=== PATIENT | male | born 1940 | race Caucasian/White ===

== ENCOUNTER 2019-04-13 12:34 | Inpatient (IN) ==
--- NOTE | 2019-04-13 14:51 | PROVIDER DOCUMENTATION ---
HPI-General Adult - General Chief Complaint: Cough Stated Complaint: POSS PNEUMONIA Time Seen by Provider: 04/13/19 14:14 Source: patient Allergies/Adverse Reactions: Patient Allergies Allergy/AdvReac Type Severity Reaction Status Date / Time Penicillins Allergy Unknown Verified 04/13/19 14:12 Home Medications: Home Medication List Medication Instructions Recorded Confirmed Last Taken Type Psyllium Husk [Fiber] 0.52 gm PO DAILY 10/14/17 04/13/19 04/12/19 History Ferrous Sulfate [Feosol] 1 tab PO DAILY 12/30/17 04/13/19 04/13/19 History Multivitamin with Minerals 1 tab PO DAILY 12/30/17 04/13/19 04/12/19 History [Multiple Vitamin] Benzonatate [Tessalon Perle] 100 mg PO TID PRN PRN 10/12/18 04/13/19 04/12/19 History Lactobacillus Combo No.11 1 ea PO DAILY 10/12/18 04/13/19 04/13/19 History [Probiotic] Ondansetron HCl [Zofran] 4 mg PO Q6-8H PRN PRN 10/12/18 04/13/19 Unknown History Sod Phos Di, [place]/K Phos [place] 250 mg PO DAILY 10/12/18 04/13/19 04/12/19 History [Phospha 250 Neutral Tablet] Cholecalciferol (Vitamin D3) 1 tab PO BID 04/13/19 04/13/19 04/12/19 History [Vitamin D3] Hydrocodone/Acetaminophen [[place] 1 tab PO PRN PRN 04/13/19 04/13/19 04/13/19 12:00 History 5-325 Tablet] Bejou-3 Fatty Acids/Fish Oil 1 tab PO DAILY 04/13/19 04/13/19 04/13/19 History [Bejou 3 1,000 mg Softgel] - History of Present Illness -Gen Adult Nature of Presenting Problems: 78 yr old M, hx of lung cancer, is brought in by his daughter because of concerns of decreasing ability to perform ADLs in the past several weeks; pt has had pneumonia before, and she states that with the last bout of pneumonia, he had been acting similarly. The pt also fell twice in a 4 hrs period - once at midnight today, and then again at 4:30AM. The daughter does not believe he has been febrile; she states that he has had a worsening dry hacking cough. Review of Systems - Adult - REVIEW OF SYSTEMS - ADULT Constitutional: reports: see HPI Eyes: reports: no symptoms reported Ears, Nose, Mouth & Throat: reports: no symptoms reported Cardiovascular: reports: no symptoms reported Respiratory: reports: see HPI, cough Gastrointestinal: reports: no symptoms reported Genitourinary: reports: no symptoms reported Musculoskeletal: reports: no symptoms reported Integumentary: reports: no symptoms reported Neurological: reports: no symptoms reported Past History - Adult - PAST MEDICAL HISTORY-ADULT Review of Records: reports: Nursing Assessment Review Major Childhood Illnesses: reports: denies history Cardiovascular: reports: HTN Respiratory: reports: COPD, cancer (lung), pneumonia (11/20/17) Gastrointestinal: reports: denies history Obstetrical/Gynecological: reports: denies history Genitourinary: reports: denies history Musculoskeletal: reports: denies history Neurological: reports: denies history Endocrine/Immune: reports: denies history Other Conditions: reports: denies history - PRIOR SURGERIES/PROCEDURES Surgical/Procedure History: reports: other (lung biopsy) - IMMUNIZATION STATUS Childhood Immunizations: See Nurse Assessment Flu Vaccine: See Nurse Assessment - FAMILY HISTORY Family History: reviewed, not pertinent - SOCIAL HISTORY Smoking: quit greater than 1 year Substance Use: none presently/history of abuse Physical Exam-General - PHYSICAL EXAM-ADULT Initial Vital Signs Reviewed: Yes - CONSTITUTIONAL General Appearance: no apparent distress, thin, other (asleep, snoring, wakes up briefly when roused but falls back asleep, does not appear to be in distress) - HEAD, EARS, NOSE, MOUTH & THROAT HENMT: normocephalic/atraumatic, moist mucous membranes - RESPIRATORY Respiratory: chest non-tender, lungs clear - CARDIOVASCULAR Cardiovascular: regular rate, rhythm, systolic murmur - GASTROINTESTINAL (ABDOMEN) Abdominal Exam: normal bowel sounds, non tender, soft - MUSCULOSKELETAL Extremity: no pedal edema - SKIN Integumentary: warm/dry Progress - PLAN OF CARE/RESULTS Progress/Plan/Lab Results: Vital Signs - 8 hr 04/13/19 12:40 04/13/19 13:07 04/13/19 13:12 Temperature 98.1 F Pulse Rate 83 Respiratory Rate 16 Blood Pressure 100/55 121/62 O2 Sat by Pulse Oximetry 97 98 04/13/19 14:00 Temperature Pulse Rate Respiratory Rate Blood Pressure O2 Sat by Pulse Oximetry 97 Orders Category Date Time Status cxr [CHEST-2 VIEWS] [RAD] Stat Exams 04/13/19 14:40 Ordered CBC WITH ELECTRONIC DIFF [HEME] Stat Lab 04/13/19 14:40 Uncollected COMPREHENSIVE METABOLIC PANEL [CHEM] Stat Lab 04/13/19 14:40 Uncollected URINALYSIS W/POSS RFLX CULT [URINALYSIS] Stat Lab 04/13/19 14:40 Uncollected Pt has mildly elevated WBC; with significantly elevated CRP (this level resulted after my discussion with the hospitalist) Dr. Cohen agrees to admit for observation, IV fluid hydration. No other significant lab abnormalities, and nothing acute on CT Head. Result Diagrams: 04/13/19 15:17 04/13/19 18:00 - XRAY 1 XRAY Study: Chest Impression: See EMR Report XRAY Interpretation: opacity in the RUL; appears to be resolving in comparison to previous imagi Departure - Departure Date of Disposition Decision: 04/13/19 Time of Disposition Decision: 21:49 DIAGNOSIS: Weakness Leukocytosis Qualifiers: Leukocytosis type: other Qualified Code(s): D72.828 - Other elevated white blood cell count Disposition: ADMITTED INPATIENT 09 Certified Medical Emergency: Emergent Condition: Fair Referrals and Follow-Ups: None,PCP [Primary Care Provider] - - Critical Care Note This patient required my direct & personal management of CC.: No Attestation - Physician/ MARIS Attestation Patient care was provided by Advanced Practice Provider:: No The physician spent face to face time with patient:: Yes Advanced Practice Provider documentation review:: Supervising physician onsite and consulted in the evaluation and care of this patient. The physician did have a face to face encounter with the patient.
--- NOTE | 2019-04-13 14:59 | Diag Imaging Result Doc PS360 ---
EXAM: CHEST-2 VIEWS 04/13/2019 HISTORY: Cough, Hx of Lung Cancer TECHNIQUE: PA and lateral chest COMMENT: Compared to 04/03/2018 the inferior right upper lobe opacities have improved. The opacity in the parahilar region of the left upper lobe has not changed significantly in appearance. There is still coarse irregular interstitial opacity in both lung bases. IMPRESSION: Pleural and parenchymal fibrosis. Improved right upper lobe pneumonia. Electronically signed by Antolin Stern 04/13/2019 2:57 PM
[2019-04-13] MEDS ORDERED: NS 1,000 ML IV ONE (15:21)
[2019-04-13 15:26] LABS: BASO# 0.03 X1000 (0.0-0.2); BASO% 0.2 % (0.0-0.8); EOS# 0.13 X1000 (0.0-0.7); HEMATOCRIT 32.2 % (42.0-52.0); IMM GRAN# 0.06 X1000 (0.0-0.04); IMM GRAN% 0.4 % (0.0-0.5); LYMPH# 1.15 X1000 (1.2-3.4); LYMPH% 8.6 % (20.5-51.1); MCH 31.3 PG (27-31); MCHC 34.2 g/dL (33-37); MCV 91.5 FL (81-99); MONO# 1.14 X1000 (0.11-0.59); MONO% 8.5 % (1.7-9.3); MPV 9.1 FL (7.4-10.4); NEUT# 10.84 X1000 (1.4-6.5); NEUT% 81.3 % (42.2-75.2); PLT 260 X1000 (130-400); RBC 3.52 XMIL (4.7-6.1); RDW 14.1 % (11.5-14.5); WBC 13.35 X1000 (4.8-10.8)
[2019-04-13 16:07] LABS: URINE SOURCE CATH
[2019-04-13 16:16] LABS: BILIRUBIN URINE NEGATIVE (NEGATIVE); BLOOD URINE SMALL (NEGATIVE); COLOR YELLOW; GLUCOSE URINE 70 mg/dL (NEGATIVE); KETONE URINE NEGATIVE (NEGATIVE); LEUKOCYTES URINE NEGATIVE (NEGATIVE); NITRITE URINE NEGATIVE (NEGATIVE); PROTEIN URINE 70 mg/dL (NEGATIVE); SP GRAVITY URINE 1.029; TURBIDITY URINE CLEAR (CLEAR); UROBILINOGEN URINE NORMAL (NORMAL)
[2019-04-13 16:17] LABS: UR EPITHELIAL CELLS <10 /HPF (<10); URINE BACTERIA NEGATIVE /HPF; URINE RBC <10 /HPF (<10); URINE WBC <10 /HPF (<10)
[2019-04-13 18:20] LABS: AGAP 12; ALBUMIN 2.9 g/dL (3.5-5.0); ALKALINE PHOSPHATASE 84 U/L (32-122); BUN 21 mg/dL (8-22); CHLORIDE 107 mmol/L (98-107); COSMO 275; CREATININE 0.5 mg/dL (0.7-1.2); ESTIMATED GFR > 60; GLUCOSE 95 mg/dL (70-104); GOT 33 U/L (10-34); GPT 17 U/L (10-44); SODIUM 136 mmol/L (136-145); TCO2 17 mmol/L (25-35); TOTAL BILIRUBIN 0.56 mg/dL (0.20-1.00); TOTAL PROTEIN 5.9 g/dL (6.3-8.3)
--- NOTE | 2019-04-13 19:08 | Diag Imaging Result Doc PS360 ---
EXAM: CT HEAD W/O CONTRAST - 04/13/2019 HISTORY: Fall, Weakness TECHNIQUE: CT head without contrast COMPARISON: 01/26/2018 FINDINGS: There are atrophic changes with ventriculomegaly similar to prior. There are chronic microvascular ischemic changes similar to prior. There is no indication of recent infarct, although acute infarcts may not be immediately visible. There is no evidence of intracranial hemorrhage, mass effect, or midline shift. There is no evidence of skull fracture. There is paranasal sinus disease noted which is most prominent at the left maxillary sinus and bilateral ethmoid air cells. IMPRESSION: Atrophic changes and chronic microvascular ischemic changes similar to prior. No visible acute intracranial abnormality. No evidence of intracranial injury. This exam was performed using automated exposure control, adjustment of mA or kV according to patient size, and/or use of iterative reconstruction technique. Electronically signed by Mitchell Staley 04/13/2019 7:06 PM
[2019-04-13] MEDS ORDERED: LEVAQUIN 750 MG/D5W 750 MG/150 ML IVPB IV ONE (20:11)
[2019-04-13] MEDS ORDERED: NORCO-5 PO PRN (21:53)
[2019-04-13] MEDS: NS 1,000 ML IV SCH (22:58)
[2019-04-13] MEDS ORDERED: LEVAQUIN 750 MG/D5W 750 MG/150 ML IVPB ONE (22:59)
[2019-04-13] MEDS: DUONEB (A & A) INH SCH (23:33)
[2019-04-14] MEDS: ZOFRAN IV PRN (00:13)
[2019-04-14] MEDS: NORCO-5 PO PRN ×3 (01:25→17:40)
--- NOTE | 2019-04-14 02:41 | HISTORY AND PHYSICAL ---
PRIMARY CARE PHYSICIAN: None. CHIEF COMPLAINT: Weakness, not feeling well. HISTORY OF PRESENTING ILLNESS: This is a 78-year-old male with a history of lung cancer, COPD on home oxygen, who had presented to emergency department with several days history of worsening weakness, fatigue. He states that he was also having some difficulty breathing. The patient was recently treated for pneumonia. He states that, however, he really never improved. He was seen in the ER. It seemed that he was mildly dehydrated and due to his overall presenting symptoms, it was thought that we will place him for observation for further evaluation and management. At the time of my examination, patient denied any headache, fever, chills, chest pain, hemoptysis. However, complained shortness of breath, not feeling well and weak. PAST MEDICAL HISTORY: Lung cancer, COPD on home oxygen. PAST SURGICAL HISTORY: Lung biopsy, left hip surgery. ALLERGIES: Penicillin. CURRENT MEDICATIONS: Include Zofran 4 mg p.o. q.6 hours, ferrous sulfate 325 mg p.o. daily, [place] 5/325 one p.o. daily, multivitamins 1 tablet daily. SOCIAL HISTORY: He is a former smoker. History of alcohol abuse in the past. Denies any illicit drug use. FAMILY HISTORY: No history of coronary artery disease. REVIEW OF SYSTEMS: Fourteen point review of systems as listed in HPI. Other systems negative. PHYSICAL EXAMINATION: GENERAL: Cooperative, elderly male. He is resting comfortably. VITAL SIGNS: Temperature 98.1 degrees, pulse 83, respirations 16, blood pressure 100/55. HEENT: Atraumatic, normocephalic. Extraocular movements intact. PERRLA. NECK: No masses. CHEST: Clear to auscultation. CARDIOVASCULAR: Regular rate and rhythm. ABDOMEN: Soft. Positive bowel sounds. EXTREMITIES: No edema. NEUROLOGIC: He is awake, alert, oriented x3. GENITOURINARY: No bladder distention. SKIN: Warm. LABORATORIES AND STUDIES: WBC 13.35, hemoglobin 11.1, hematocrit 32.2, platelets 260,000. Sodium 136, potassium 4.0, chloride 107, CO2 of 17, BUN is 21, creatinine 0.5, glucose is 95. UA is nitrite negative. Chest x-ray shows improved right upper lobe pneumonia. ASSESSMENT: A 78-year-old male with a history of lung cancer and chronic obstructive pulmonary disease on home oxygen presented to the emergency department several days history of having worsening weakness and shortness of breath. He was evaluated in the emergency department and due to his presenting symptoms we will place him for observation for further evaluation and management. 1. Generalized weakness. 2. Mild dehydration. 3. Status post recent treatment for pneumonia. 4. Chronic obstructive pulmonary disease, on home oxygen. 5. Lung cancer. PLAN: 1. We will admit patient to medical floor with telemetry. 1. Continue with supportive treatment with IV fluids, antiemetics as needed. 2. We will give patient some cough suppressant. 3. Continue with DuoNebs and supplemental oxygen. 4. We will consult his oncologist regarding his lung cancer. 5. We will put patient on DVT prophylaxis with SCDs. 6. We will continue to follow, and reassess and make further recommendation based on the patient's clinical course. cc: Alex Cohen MD
[2019-04-14] MEDS: DUONEB (A & A) INH SCH ×6 (03:05→22:55)
[2019-04-14 07:27] LABS: BASO# 0.02 X1000 (0.0-0.2); BASO% 0.2 % (0.0-0.8); EOS# 0.01 X1000 (0.0-0.7); EOS% 0.1 % (0.0-10.0); HEMATOCRIT 28.9 % (42.0-52.0); HEMOGLOBIN 9.6 g/dL (14.0-18.0); IMM GRAN# 0.05 X1000 (0.0-0.04); IMM GRAN% 0.4 % (0.0-0.5); LYMPH# 1.06 X1000 (1.2-3.4); LYMPH% 9.4 % (20.5-51.1); MCH 30.9 PG (27-31); MCHC 33.2 g/dL (33-37); MCV 92.9 FL (81-99); MONO# 0.98 X1000 (0.11-0.59); MONO% 8.7 % (1.7-9.3); MPV 9.1 FL (7.4-10.4); NEUT# 9.19 X1000 (1.4-6.5); NEUT% 81.2 % (42.2-75.2); PLT 270 X1000 (130-400); RBC 3.11 XMIL (4.7-6.1); RDW 14.1 % (11.5-14.5); WBC 11.31 X1000 (4.8-10.8)
[2019-04-14 07:44] LABS: AGAP 11; BUN 19 mg/dL (8-22); CHLORIDE 108 mmol/L (98-107); COSMO 277; CREATININE 0.5 mg/dL (0.7-1.2); ESTIMATED GFR > 60; GLUCOSE 110 mg/dL (70-104); POTASSIUM 3.9 mmol/L (3.5-5.1); SODIUM 137 mmol/L (136-145); TCO2 18 mmol/L (25-35)
[2019-04-14] MEDS: CULTURELLE PO SCH (09:40)
[2019-04-14] MEDS: FISH OIL CONCENTRATE PO SCH (09:40)
[2019-04-14] MEDS: NS 1,000 ML IV SCH ×2 (09:40→17:40)
[2019-04-14] MEDS: THERA M PLUS PO SCH (09:41)
[2019-04-14] MEDS: NEUTRA-PHOS PO SCH (09:41)
[2019-04-14] MEDS: FERROUS SULFATE PO SCH (09:41)
--- NOTE | 2019-04-14 09:43 | PROGRESS NOTE ---
DATE: 04/14/2019 SUBJECTIVE: This is a 78-year-old who was not feeling well with weakness. Has a history of lung cancer, COPD on home oxygen. Presented to the emergency room with several-day history of worsening weakness and fatigue, having difficulty breathing. The patient was recently treated for pneumonia. States he has never really fully improved. Seemed to be mildly dehydrated and he was found to have exacerbation of COPD status post treatment of pneumonia, mild dehydration, general weakness, underlying lung cancer. PHYSICAL EXAMINATION: Vital Signs: Temperature 97.5 degrees, pulse 66, respirations 14, blood pressure 121/56. Eyes: Pupils are equal and round. Lungs: Clear in all lung fallon. Cardiovascular exam: Regular rhythm and rate without murmur or S3. Abdomen: Soft. Skin: Warm and dry. X-RAYS: Chest x-ray showed pleural and parenchymal fibrosis, improved, right upper lobe pneumonia. CT of his head without contrast revealed atrophic changes, chronic microvascular ischemic changes, no visible intracranial abnormality. PLAN: Continue his Levaquin 750 mg IV; we will continue that q. 24 hours. Electrolytes look okay. Continue IV hydration. Creatinine is 0.5. cc: Antonio Funez MD
[2019-04-14] MEDS: LEVAQUIN 750 MG/D5W 750 MG/150 ML IVPB IV SCH (22:12)
[2019-04-15] MEDS: NORCO-5 PO PRN ×4 (00:45→23:42)
[2019-04-15] MEDS: DUONEB (A & A) INH SCH ×6 (03:22→22:55)
--- NOTE | 2019-04-15 04:55 | EKG Report ---
Test Performed on : 04/15/2019 03:09:33 AM Test Reason : possible afib Blood Pressure : / mmHG Vent. Rate : 081 BPM Atrial Rate : 065 BPM P-R Int : 174 ms QRS Dur : 082 ms QT Int : 386 ms P-R-T Axes : 067 047 074 degrees QTc Int : 448 ms Sinus rhythm. with premature supraventricular complexes. Septal infarct (cited on or before 21-MAR-2018) Abnormal ECG When compared with ECG of 22-MAR-2018 13:29, Sinus rhythm. has replaced Atrial fibrillation. Confirmed by Nelsy ALONZO, Bennett ([id number]) on 04/16/2019 8:28:32 AM
--- NOTE | 2019-04-15 09:38 | PROGRESS NOTE ---
DATE: 04/15/2019 SUBJECTIVE: Mr. Frey is breathing better. He feels better. He is getting some shooting pain to his right foot. OBJECTIVE: Vital signs: Temp 97.9 degrees, pulse 84, respirations 16, blood pressure 125/55. HEENT: Pupils are equal and round. Lungs: Clear in all lung fallon. Cardiovascular: Regular rhythm and rate without murmur or S3. Abdomen: Soft. His abdomen has no pain. Extremities: No swelling in his feet, but he is having shooting pain in his right foot. ASSESSMENT AND PLAN: 1. Here with pneumonia. Continue his Levaquin 750 mg IV q.24 hours. Continue IV hydration. He has x-ray that shows some parenchymal fibrosis, improved right upper lobe pneumonia. 2. This is a patient with lung cancer, chronic obstructive pulmonary disease on home oxygen. 3. Has a Gallego catheter in at the present time. REVIEW OF ORDERS: I do not see any change. He is getting ferrous sulfate 325 mg a day, lactobacillus rhamnosus 1 daily, levofloxacin 750 mg IV q.24 hours. He is on a heart healthy diet. I will keep his Gallego catheter in for now. cc: Antonio Funez MD
[2019-04-15] MEDS: CULTURELLE PO SCH (11:00)
[2019-04-15] MEDS: FERROUS SULFATE PO SCH (11:00)
[2019-04-15] MEDS: THERA M PLUS PO SCH (11:00)
[2019-04-15] MEDS: FISH OIL CONCENTRATE PO SCH (11:01)
[2019-04-15] MEDS: NEUTRA-PHOS PO SCH (11:01)
[2019-04-15] MEDS: LEVAQUIN 750 MG/D5W 750 MG/150 ML IVPB IV SCH (22:08)
[2019-04-16] MEDS: DUONEB (A & A) INH SCH ×6 (05:07→23:10)
[2019-04-16] MEDS: NEUTRA-PHOS PO SCH (08:05)
[2019-04-16] MEDS: FERROUS SULFATE PO SCH (08:06)
[2019-04-16] MEDS: CULTURELLE PO SCH (08:06)
[2019-04-16] MEDS: THERA M PLUS PO SCH (08:06)
[2019-04-16] MEDS: NORCO-5 PO PRN ×3 (08:06→21:10)
[2019-04-16] MEDS: FISH OIL CONCENTRATE PO SCH (08:06)
--- NOTE | 2019-04-16 09:15 | Diag Imaging Result Doc PS360 ---
EXAM: CHEST-PORTABLE HISTORY: pneumonia TECHNIQUE: Single view COMPARISON: 04/13/2019 FINDINGS: Persistent infiltrates in the mid lower left lung. The appearance is similar to the prior exam. No cardiomegaly. The right hemidiaphragm is elevated. No pleural effusions identified. IMPRESSION: No interval improvement Electronically signed by Sebastián Jameson 04/16/2019 9:13 AM
--- NOTE | 2019-04-16 17:35 | PROGRESS NOTE ---
DATE: 04/16/2019 SUBJECTIVE: Mr. Frey is a 78-year-old who was admitted on 04/13/2019. He came in with weakness, not feeling well. He has a history of lung cancer, COPD, on home oxygen. He presented to the emergency department with a several day history of worsening fatigue, difficulty breathing, and recently treated for pneumonia. States that he did not feel like he ever really improved. He was admitted to the hospital with generalized weakness, mild dehydration, and status post recent treatment for pneumonia, underlying COPD, and lung cancer, on home oxygen. He states he is about the same. Still concerned about his weakness. His desire is to try and go home and maybe we can get home health to help him, get some assistance. He is complaining of constipation so will see if we can add something to his bowel regimen. OBJECTIVE: Vital signs: Temperature 99.1 degrees, pulse 54, respirations 20, blood pressure 121/44. HEENT: Pupils are equal and round. Lungs: Clear in all lung fallon anterolateral. Decreased breath sounds both bases. Cardiovascular: Regular rhythm and rate without murmur or S3. Abdomen: Soft. Skin: Warm and dry. Urine output was 5,500 mL. IMAGING: His chest x-ray from this morning, no interval improvement. Persistent infiltrates in the mid lower left lung. No pleural effusion. ASSESSMENT AND PLAN: We will continue his Levaquin 750 mg IV daily. I am going to see if we can add some MiraLAX 1 scoop daily and we will do Colace 100 mg twice a day. He can have milk of magnesia as needed by request. We will give him 1 dose this evening. We will get physical therapy involved and occupational therapy and see if we can give him assistance and see if we can get some home health set up for him. cc: Antonio Funez MD
[2019-04-16] MEDS: MILK OF MAGNESIA PO SCH (18:09)
[2019-04-16] MEDS: MIRALAX PO SCH (18:09)
[2019-04-16] MEDS: LEVAQUIN 750 MG/D5W 750 MG/150 ML IVPB IV SCH (22:49)
[2019-04-17] MEDS: DUONEB (A & A) INH SCH ×6 (04:37→23:13)
[2019-04-17] MEDS: FERROUS SULFATE PO SCH (08:06)
[2019-04-17] MEDS: MIRALAX PO SCH (08:06)
[2019-04-17] MEDS: MILK OF MAGNESIA PO SCH (08:06)
[2019-04-17] MEDS: THERA M PLUS PO SCH (08:06)
[2019-04-17] MEDS: CULTURELLE PO SCH (08:06)
[2019-04-17] MEDS: FISH OIL CONCENTRATE PO SCH (08:06)
[2019-04-17] MEDS: NORCO-5 PO PRN ×3 (08:06→21:10)
[2019-04-17] MEDS: NEUTRA-PHOS PO SCH (08:06)
--- NOTE | 2019-04-17 21:19 | PROGRESS NOTE ---
DATE: 04/17/2019 SUBJECTIVE: Patient has no major complaints. OBJECTIVE: Blood pressure is 107/65, heart rate 67, respiratory 19, temperature 98.6 degrees, 99% on 2 L.Cardiovascular: Regular rate and rhythm. Pulmonary: Bilateral breath sounds clear to auscultation. GI: Soft, nontender, nondistended. Bowel sounds are positive. LABORATORY DATA: White count is 11, hemoglobin and hematocrit 9 and 28, platelets 270,000. Basic was normal. PROBLEMS: 1. Pneumonia. He is on Levaquin. We will continue treatment and follow. 2. Constipation. He is on bowel regimen. 3. Chronic obstructive pulmonary disease exacerbation. Seems to be doing okay. 4. Disposition. We are looking at possible or most likely inpatient rehab options. 5. He does have a history of lung cancer, I do not know if he is actively getting treatment but we will continue to monitor. cc: Андрей Nguyen MD
[2019-04-17] MEDS: LEVAQUIN 750 MG/D5W 750 MG/150 ML IVPB IV SCH (22:25)
[2019-04-18] MEDS: DUONEB (A & A) INH SCH ×6 (03:39→23:20)
[2019-04-18] MEDS: LOVENOX SUBQ SCH (06:31)
[2019-04-18] MEDS: NORCO-5 PO PRN ×3 (06:31→18:50)
[2019-04-18] MEDS: MIRALAX PO SCH (09:35)
[2019-04-18] MEDS: NEUTRA-PHOS PO SCH (09:35)
[2019-04-18] MEDS: MILK OF MAGNESIA PO SCH (09:35)
[2019-04-18] MEDS: CULTURELLE PO SCH (09:37)
[2019-04-18] MEDS: FISH OIL CONCENTRATE PO SCH (09:37)
[2019-04-18] MEDS: FERROUS SULFATE PO SCH (09:37)
[2019-04-18] MEDS: THERA M PLUS PO SCH (09:37)
[2019-04-18] MEDS: VENOFER 300 MG in NS 250 ML IV SCH (12:50)
--- NOTE | 2019-04-18 16:05 | PROGRESS NOTE ---
DATE: 04/18/2019 SUBJECTIVE: Patient has no major complaints. He is still weak. He cannot walk. He can stand and take one step. OBJECTIVE: Vital Signs: Blood pressure 107/73, heart rate 82, respiratory rate 22, temperature 97.9 degrees, O2 saturation 95% on room air. Cardiovascular: Regular rate and rhythm. Pulmonary: Bilateral breath sounds clear to auscultation. GI: Soft, nontender, nondistended. Bowel sounds are positive. LABORATORY DATA: White count 11, hemoglobin and hematocrit 9 and 28, platelets 270,000. Basic was normal. PROBLEM LIST: 1. Pneumonia. We will continue Levaquin. He is on day #5. I probably would treat for at least 7 to 10 days. 2. Constipation. He is currently on a bowel regimen and stable. 3. Chronic obstructive pulmonary disease exacerbation. Seems to be also doing okay. 4. History of lung cancer. We will continue to monitor. DISPOSITION: Pending. Continue to follow closely and looking at rehab options for him. cc: Андрей Nguyen MD
--- NOTE | 2019-04-18 19:45 | HEMO/ONC CONSULTATION ---
DATE: 04/16/2019 ADMITTING PHYSICIAN: Dr. Alex Cohen. REQUESTING PHYSICIAN: Dr. Alex Cohen. We appreciate the consult CHIEF COMPLAINT: Non-small cell lung cancer. HISTORY OF PRESENT ILLNESS: Mr. Miguel Frey is a 78-year-old patient well known to Dr. Gandara with a history of non-small cell lung cancer. He is currently maintained on Opdivo. Last PET scan was on March 20, which revealed no FDG-avid neoplasm. The patient has been tolerating treatment well. He has had a recent pneumonia which was treated with antibiotics with improvement; however, the patient presented to the [facility] Emergency Department with complaints of worsening weakness and fatigue as well as dyspnea on exertion. The patient appeared to be mildly dehydrated and was admitted for observation. We are consulted, as the patient is well known to us. PAST MEDICAL HISTORY: 1. Non-small cell lung cancer. 2. COPD on home O2. PAST SURGICAL HISTORY: 1. Left hip surgery. 2. Lung biopsy. SOCIAL HISTORY: The patient has a history of smoking. He also has a history of alcohol abuse. He does not use illicit drugs. FAMILY HISTORY: Negative for any hematologic or oncologic disease. MEDICATIONS ON ADMISSION: 1. Zofran. 2. Ferrous sulfate. 3. [place]. 4. Multivitamin. ALLERGIES: Penicillin. REVIEW OF SYSTEMS: A 14-point review of systems was obtained and is negative except as mentioned in HPI. PHYSICAL EXAM: Mr. Miguel Frey is a 78-year-old male who is quite thin, lying supine in bed in no immediate distress.HEENT: Normocephalic, atraumatic. Mucous membranes are pale and slightly dry. Sclerae anicteric. Extraocular movements intact. Neck: Supple. Lungs: With decreased breath sounds in the bases. CV: S1, S2 is heard. No murmurs, rubs or gallops. Abdomen: Nondistended. Extremities: No clubbing, cyanosis, or edema. Dermatologic: No rashes, bruises, or lesions. Neurologic: The patient is awake, alert, and oriented x3. Has no focal deficit. LABORATORY DATA: Hemoglobin 9.6, hematocrit 28.9, white blood cell count 11.31, platelets 270. Sodium 137, potassium 3.9, chloride 108. CO2 is 18, BUN 19, creatinine 0.5, and glucose 110. IMAGING STUDIES: Chest x-ray reveals pleural and parenchymal fibrosis with improved right upper lobe pneumonia. ASSESSMENT AND PLAN: 1. Stage IV non-small cell lung cancer, currently maintained on Opdivo. PET scan in March revealed no FDG-avid neoplasm. 2. Weakness and dehydration, currently on IV fluids. Physical therapy has been consulted. 3. Recent pneumonia, improved. The patient remains on antibiotics at this time. 4. Chronic obstructive pulmonary disease without exacerbation. We will continue to monitor. 5. We will follow along with you and make further recommendations pending outcomes. The above reflects the history, exam, assessment, and plan of Dr. Gandara. Dictated by RED Navqi for Alan Gandara MD cc: RED Naqvi MD
[2019-04-19] MEDS: LEVAQUIN 750 MG/D5W 750 MG/150 ML IVPB IV SCH (00:47)
[2019-04-19] MEDS: NORCO-5 PO PRN ×4 (00:48→19:24)
[2019-04-19] MEDS: DUONEB (A & A) INH SCH ×6 (03:20→23:15)
[2019-04-19] MEDS: LOVENOX SUBQ SCH (06:41)
[2019-04-19 07:54] LABS: BASO# 0.04 X1000 (0.0-0.2); BASO% 0.6 % (0.0-0.8); EOS# 0.19 X1000 (0.0-0.7); EOS% 2.6 % (0.0-10.0); HEMATOCRIT 31.7 % (42.0-52.0); HEMOGLOBIN 10.7 g/dL (14.0-18.0); IMM GRAN# 0.15 X1000 (0.0-0.04); IMM GRAN% 2.1 % (0.0-0.5); LYMPH# 1.08 X1000 (1.2-3.4); MCH 31.4 PG (27-31); MCHC 33.8 g/dL (33-37); MONO% 12.5 % (1.7-9.3); MPV 9.1 FL (7.4-10.4); NEUT# 4.86 X1000 (1.4-6.5); NEUT% 67.2 % (42.2-75.2); PLT 264 X1000 (130-400); RBC 3.41 XMIL (4.7-6.1); RDW 13.9 % (11.5-14.5); WBC 7.22 X1000 (4.8-10.8)
[2019-04-19 08:29] LABS: AGAP 13; BUN 14 mg/dL (8-22); CALCIUM 8.5 mg/dL (8.8-10.2); CHLORIDE 95 mmol/L (98-107); COSMO 255; CREATININE 0.7 mg/dL (0.7-1.2); ESTIMATED GFR > 60; GLUCOSE 94 mg/dL (70-104); POTASSIUM 5.2 mmol/L (3.5-5.1); PREALBUMIN 12.6 mg/dL (20-40); SODIUM 127 mmol/L (136-145); TCO2 19 mmol/L (25-35)
[2019-04-19] MEDS: VENOFER 300 MG in NS 250 ML IV SCH (08:53)
[2019-04-19] MEDS: NEUTRA-PHOS PO SCH (08:53)
[2019-04-19] MEDS: MIRALAX PO SCH (08:53)
[2019-04-19] MEDS: FISH OIL CONCENTRATE PO SCH (08:54)
[2019-04-19] MEDS: THERA M PLUS PO SCH (08:54)
[2019-04-19] MEDS: MILK OF MAGNESIA PO SCH (08:54)
[2019-04-19] MEDS: CULTURELLE PO SCH (08:54)
[2019-04-19] MEDS: FERROUS SULFATE PO SCH (08:54)
--- NOTE | 2019-04-19 14:49 | PROGRESS NOTE ---
DATE: 04/19/2019 SUBJECTIVE: The patient reports feeling fine. Continues to feel weak. He cannot walk. OBJECTIVE: Vital Signs: Temperature 98.6 degrees, heart rate 86, respiratory rate 20, blood pressure 134/67, O2 saturation 96% on room air. General: This is a 78-year-old male, lying in bed, in no acute distress. Cardiovascular: S1, S2 heard. No murmurs, gallops, or rubs. Regular rate and rhythm. Respiratory: Clear bilaterally to auscultation. No work of breathing or using accessory muscles. Abdomen: Soft, nontender to palpation. Bowel sounds present. No organomegaly. Extremities: No clubbing, cyanosis, or edema. Peripheral pulses present in both legs. Neurological: Patient is alert and oriented x3. Moves four extremities. LABORATORY DATA: Reviewed. ASSESSMENT AND PLAN: 1. Community-acquired pneumonia. Patient continues to be on Levaquin. Today is day #6 of treatment. Will treat this patient for at least 10 days. 2. Constipation. We will continue with stool softeners. 3. Chronic obstructive pulmonary disease exacerbation. Clinically, this patient is doing better so we will continue with current management. 4. History of lung cancer. The patient has been seen by Oncology here in the hospital. We will continue to monitor. 5. Physical deconditioning. Patient working with Physical Therapy. DISCHARGE DISPOSITION: This patient is well known to our hospital. We know this patient does not have any more rehab days. We have talked with social worker clinical to see what other options can we offer to this patient. In the meantime, we will continue to monitor this patient closely. cc: Stevie Louis MD
[2019-04-20] MEDS: LEVAQUIN 750 MG/D5W 750 MG/150 ML IVPB IV SCH ×2 (00:16→22:12)
[2019-04-20] MEDS: ZOFRAN IV PRN (00:22)
[2019-04-20] MEDS: DUONEB (A & A) INH SCH ×6 (03:15→23:26)
[2019-04-20] MEDS: NORCO-5 PO PRN ×4 (03:17→22:18)
[2019-04-20] MEDS: LOVENOX SUBQ SCH (06:28)
[2019-04-20] MEDS: NEUTRA-PHOS PO SCH (09:02)
[2019-04-20] MEDS: MIRALAX PO SCH (09:02)
[2019-04-20] MEDS: THERA M PLUS PO SCH (09:02)
[2019-04-20] MEDS: MILK OF MAGNESIA PO SCH (09:02)
[2019-04-20] MEDS: FISH OIL CONCENTRATE PO SCH (09:03)
[2019-04-20] MEDS: FERROUS SULFATE PO SCH (09:03)
[2019-04-20] MEDS: CULTURELLE PO SCH (09:03)
[2019-04-20] MEDS ORDERED: SAMSCA PO ONE (11:12)
[2019-04-20] MEDS ORDERED: RELISTOR SUBQ ONE (11:20)
--- NOTE | 2019-04-20 20:09 | PROGRESS NOTE ---
DATE: 04/20/2019 SUBJECTIVE: Patient reports feeling okay. Continues to feel weak, but no cough. He cannot walk, he said. OBJECTIVE: Vital Signs: Temperature is 98.2 degrees, heart rate 73, respiratory rate 19, blood pressure 115/59, O2 saturation 98% on room air. General: This is a chronically ill-appearing, 78- year-old male, lying in bed, in no acute distress. Cardiovascular: S1, S2 heard. No murmurs, gallops, or rubs. Regular rate and rhythm. Respiratory: Coarse breath sounds noted in both pulmonary bases. Patient not using any accessory muscles or having work of breathing. Abdomen: Soft, nontender to palpation. Bowel sounds present. No organomegaly. No clubbing, cyanosis, or edema. Peripheral pulses present in both legs. Neurological: Patient alert and oriented x3. Moves 4 extremities. LABORATORY DATA: Reviewed. ASSESSMENT AND PLAN: 1. Community-acquired pneumonia. We will continue with Levaquin. The patient is supposed to complete 10 days of treatment. Today is number 7 of those. 2. Constipation. We will continue with stool softeners. 3. Chronic obstructive pulmonary disease exacerbation. Clinically, this patient continues to feel better. No wheezing in the physical examination. At this point, we will continue with current management. 4. History of lung cancer. The patient has been evaluated by Oncology here in the hospital, but they are not doing anything active for this patient like chemotherapy. 5. Physical deconditioning. Patient working with physical therapy. He is very weak and only able to take a few steps. 6. Discharge disposition. This patient unfortunately has run out of rehab days. At this point, we are trying to keep him in the hospital, transferred actually to [facility]. We will continue to provide physical therapy. cc: Stevie Louis MD
[2019-04-21] MEDS: DUONEB (A & A) INH SCH ×6 (03:48→23:09)
[2019-04-21] MEDS: NORCO-5 PO PRN ×2 (05:29→20:02)
[2019-04-21] MEDS: LOVENOX SUBQ SCH (05:29)
[2019-04-21] MEDS: MILK OF MAGNESIA PO SCH (08:24)
[2019-04-21] MEDS: MIRALAX PO SCH (08:24)
[2019-04-21] MEDS: FERROUS SULFATE PO SCH (08:24)
[2019-04-21] MEDS: CULTURELLE PO SCH (08:24)
[2019-04-21] MEDS: NEUTRA-PHOS PO SCH (08:24)
[2019-04-21] MEDS: THERA M PLUS PO SCH (08:24)
[2019-04-21] MEDS: CALMOSEPTINE OINTMENT TOP PRN (08:24)
[2019-04-21] MEDS: FISH OIL CONCENTRATE PO SCH (08:24)
[2019-04-21] MEDS: ZOFRAN IV PRN (10:58)
[2019-04-21] MEDS: LEVAQUIN 750 MG/D5W 750 MG/150 ML IVPB IV SCH (22:02)
--- NOTE | 2019-04-22 02:16 | PROGRESS NOTE ---
DATE: 04/21/2019 SUBJECTIVE: Patient has no new complaints. Notes that he is still coughing, but improved. Denies any fevers or chills. PHYSICAL EXAMINATION: Vital Signs: Temperature 97.8 degrees, pulse 82, respiratory rate 18, BP 107/88. General: Patient is awake, currently in no respiratory distress. HEENT: Normocephalic. Neck: Supple. Cardiovascular: Regular rate. Chest: Good air movement bilaterally. No crackles. No wheezing. Abdomen: Soft, nondistended. Extremities: Moves all extremities. ASSESSMENT: 1. Community-acquired pneumonia. 2. Chronic constipation. 3. Hyponatremia. 4. Chronic obstructive pulmonary disease with mild exacerbation. 5. Physical deconditioning. PLAN: Patient currently is on day 12/16 of Levaquin. We are going to continue to follow his sodium. Continue breathing treatments, oxygen. Further orders as needed. cc: Addison Cevallos MD
[2019-04-22] MEDS: DUONEB (A & A) INH SCH ×6 (03:37→23:19)
[2019-04-22] MEDS: LOVENOX SUBQ SCH (05:16)
[2019-04-22 06:40] LABS: HEMATOCRIT 30.7 % (42.0-52.0); HEMOGLOBIN 10.2 g/dL (14.0-18.0); MCH 30.4 PG (27-31); MCHC 33.2 g/dL (33-37); MCV 91.4 FL (81-99); MPV 8.4 FL (7.4-10.4); RBC 3.36 XMIL (4.7-6.1); RDW 13.6 % (11.5-14.5); WBC 8.39 X1000 (4.8-10.8)
[2019-04-22] MEDS: NORCO-5 PO PRN ×3 (06:49→17:58)
[2019-04-22 06:57] LABS: AGAP 9; ALBUMIN 3.2 g/dL (3.5-5.0); ALKALINE PHOSPHATASE 94 U/L (32-122); BUN 25 mg/dL (8-22); CALCIUM 8.3 mg/dL (8.8-10.2); CHLORIDE 97 mmol/L (98-107); COSMO 261; CREATININE 0.6 mg/dL (0.7-1.2); ESTIMATED GFR > 60; GLUCOSE 115 mg/dL (70-104); GOT 35 U/L (10-34); GPT 36 U/L (10-44); POTASSIUM 4.5 mmol/L (3.5-5.1); SODIUM 127 mmol/L (136-145); TCO2 21 mmol/L (25-35); TOTAL PROTEIN 6.6 g/dL (6.3-8.3)
[2019-04-22] MEDS: FERROUS SULFATE PO SCH (09:37)
[2019-04-22] MEDS: CULTURELLE PO SCH (09:37)
[2019-04-22] MEDS: NEUTRA-PHOS PO SCH (09:37)
[2019-04-22] MEDS: THERA M PLUS PO SCH (09:37)
[2019-04-22] MEDS: FISH OIL CONCENTRATE PO SCH (09:38)
[2019-04-22] MEDS: MILK OF MAGNESIA PO SCH (09:42)
[2019-04-22] MEDS: MIRALAX PO SCH (09:42)
[2019-04-22] MEDS: ZOFRAN IV PRN (10:07)
--- NOTE | 2019-04-22 12:21 | PROGRESS NOTE ---
DATE: 04/22/2019 SUBJECTIVE: Patient is with no new complaints. Denies any fevers or chills. PHYSICAL EXAMINATION: Vital Signs: Reviewed. Temperature 97.7 degrees, pulse 82, respiratory rate 18, BP 107/51. General: Patient is pleasant. He is in no distress. HEENT: Normocephalic. Neck: Supple. Cardiovascular: Regular rate. Chest: Clear. Abdomen: Soft. Extremities: Moves all extremities. Neurologic: No changes. ASSESSMENT: 1. Community-acquired pneumonia. He is on day 9 of 10 of Levaquin. 2. Syndrome of inappropriate antidiuretic hormone secretion. We are going to fluid-restrict. 3. Chronic constipation. 4. Chronic obstructive pulmonary disease with mild exacerbation. 5. Physical deconditioning. PLAN: We are going to continue patient in the hospital for 2 more days of Levaquin. He is going to need rehab most likely on discharge, although apparently he is out of days. We will continue physical therapy and we will follow. cc: Addison Cevallos MD
[2019-04-22] MEDS: LEVAQUIN 750 MG/D5W 750 MG/150 ML IVPB IV SCH (22:20)
[2019-04-23] MEDS: NORCO-5 PO PRN ×4 (00:02→19:22)
[2019-04-23] MEDS: DUONEB (A & A) INH SCH ×6 (03:42→23:04)
[2019-04-23] MEDS: LOVENOX SUBQ SCH (05:14)
[2019-04-23] MEDS: FERROUS SULFATE PO SCH (09:49)
[2019-04-23] MEDS: CULTURELLE PO SCH (09:49)
[2019-04-23] MEDS: THERA M PLUS PO SCH (09:50)
[2019-04-23] MEDS: NEUTRA-PHOS PO SCH (09:50)
[2019-04-23] MEDS: FISH OIL CONCENTRATE PO SCH (09:50)
[2019-04-23] MEDS: MILK OF MAGNESIA PO SCH (09:50)
[2019-04-23] MEDS: MIRALAX PO SCH (09:51)
[2019-04-23] MEDS: LEVAQUIN 750 MG/D5W 750 MG/150 ML IVPB IV SCH (22:18)
[2019-04-24] MEDS: DUONEB (A & A) INH SCH ×6 (03:49→22:46)
[2019-04-24] MEDS: NORCO-5 PO PRN ×2 (03:59→18:39)
[2019-04-24] MEDS: LOVENOX SUBQ SCH (06:09)
--- NOTE | 2019-04-24 07:21 | PROGRESS NOTE ---
DATE: 04/23/2019 SUBJECTIVE: The patient himself has no new complaints. The staff noted a wound with draining of the right biceps area. This has been and bandage applied. PHYSICAL EXAMINATION: Vital signs: Temperature afebrile 97.9 degrees, pulse 71, respiratory rate 18, blood pressure 123/66. General: Patient is in no current respiratory distress. Very pleasant. HEENT: Normocephalic. Neck: Supple. Cardiovascular: Regular rate. Chest: Clear. Abdomen: Soft, nondistended. Extremities: Has a wound on his right inner biceps. PLAN: We are going to continue him in the hospital. Continue breathing treatments. ASSESSMENT: 1. Community-acquired pneumonia. 2. Constipation. 3. Chronic obstructive pulmonary disease. 4. Wound to right biceps. 5. 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 PLAN: We are going to continue fluid restriction. Recheck his labs in the morning. Continue antibiotics. Culture the wound on his right biceps and we will follow. cc: Addison Cevallos MD
[2019-04-24] MEDS ORDERED: VANCOMYCIN IV PER PHARMACY MISC SCH (09:00)
[2019-04-24] MEDS: FISH OIL CONCENTRATE PO SCH (09:52)
[2019-04-24] MEDS: FERROUS SULFATE PO SCH (09:52)
[2019-04-24] MEDS: THERA M PLUS PO SCH (09:52)
[2019-04-24 09:58] LABS: BASO# 0.06 X1000 (0.0-0.2); BASO% 0.7 % (0.0-0.8); EOS# 0.14 X1000 (0.0-0.7); EOS% 1.7 % (0.0-10.0); HEMATOCRIT 30.3 % (42.0-52.0); HEMOGLOBIN 9.9 g/dL (14.0-18.0); IMM GRAN# 0.14 X1000 (0.0-0.04); IMM GRAN% 1.7 % (0.0-0.5); LYMPH# 1.03 X1000 (1.2-3.4); LYMPH% 12.8 % (20.5-51.1); MCH 30.2 PG (27-31); MCHC 32.7 g/dL (33-37); MCV 92.4 FL (81-99); MONO# 0.84 X1000 (0.11-0.59); MONO% 10.4 % (1.7-9.3); NEUT# 5.86 X1000 (1.4-6.5); NEUT% 72.7 % (42.2-75.2); PLT 400 X1000 (130-400); RBC 3.28 XMIL (4.7-6.1); RDW 13.7 % (11.5-14.5); WBC 8.07 X1000 (4.8-10.8)
[2019-04-24] MEDS ORDERED: VANCOMYCIN 2,000 MG in NS 500 ML IV ONE (10:00)
[2019-04-24] MEDS: CULTURELLE PO SCH (10:02)
[2019-04-24] MEDS: MIRALAX PO SCH (10:02)
[2019-04-24] MEDS: MILK OF MAGNESIA PO SCH (10:02)
[2019-04-24] MEDS: NEUTRA-PHOS PO SCH (10:02)
[2019-04-24 10:19] LABS: AGAP 11; ALBUMIN 3.3 g/dL (3.5-5.0); BUN 26 mg/dL (8-22); CALCIUM 8.3 mg/dL (8.8-10.2); CHLORIDE 97 mmol/L (98-107); COSMO 267; CREATININE 0.5 mg/dL (0.7-1.2); ESTIMATED GFR > 60; GLUCOSE 150 mg/dL (70-104); PHOSPHORUS 1.6 mg/dL (2.7-4.5); POTASSIUM 3.9 mmol/L (3.5-5.1); SODIUM 129 mmol/L (136-145); TCO2 22 mmol/L (25-35)
[2019-04-24] MEDS ORDERED: SAMSCA PO ONE (11:18)
--- NOTE | 2019-04-24 15:16 | PROGRESS NOTE ---
DATE: 04/24/2019 SUBJECTIVE: Patient reports feeling fine. Wound in the right biceps area is covered by a dressing. OBJECTIVE: Vital Signs: Temperature 97.7, heart rate 64, respiratory rate 18, blood pressure 115/59, O2 saturation 98% on room air. General Examination: This is a 78-year-old male, lying in bed, in no acute distress. Cardiovascular: S1, S2 heard. No murmurs, gallops, or rubs. Regular rate and rhythm. Respiratory: Clear bilaterally to auscultation. No work of breathing or using accessory muscles. Abdomen: Soft. Nontender to palpation. Bowel sounds present. No organomegaly. Extremities: No clubbing, cyanosis, or edema. Peripheral pulses present in both legs. There is a wound in the right inner biceps. Neurological: Patient is alert and oriented x3. Moves 4 extremities. LABORATORY DATA: Reviewed. ASSESSMENT AND PLAN: 1. Community-acquired pneumonia. Patient has received 10 days of antibiotics, in this case Levaquin 750 mg, so we are going to stop it. 2. Methicillin-resistant Staphylococcus aureus infection in the right biceps. Patient has been started on vancomycin IV. 3. Hyponatremia, secondary to syndrome of inappropriate antidiuretic hormone secretion. We will provide 1 dose of Samsca. Will continue to monitor BMP daily. 4. Constipation. We will continue with stool softeners. 5. Chronic obstructive pulmonary disease, not in any exacerbation. Will continue to monitor. 6. Disposition. The patient is also feeling very weak. His barely able to stand up. So he needs to be sent to a rehab facility but because this patient ran out of rehab days, he will be in the hospital for a while receiving physical therapy and occupational therapy as well. cc: Stevie Louis MD
[2019-04-25] MEDS: NORCO-5 PO PRN ×2 (00:06→18:07)
[2019-04-25] MEDS: DUONEB (A & A) INH SCH ×6 (03:15→23:33)
[2019-04-25] MEDS: LOVENOX SUBQ SCH (05:23)
[2019-04-25 06:23] LABS: AGAP 10; ALBUMIN 3.2 g/dL (3.5-5.0); BUN 24 mg/dL (8-22); CALCIUM 8.4 mg/dL (8.8-10.2); CHLORIDE 104 mmol/L (98-107); COSMO 272; CREATININE 0.4 mg/dL (0.7-1.2); ESTIMATED GFR > 60; GLUCOSE 120 mg/dL (70-104); PHOSPHORUS 1.6 mg/dL (2.7-4.5); POTASSIUM 3.6 mmol/L (3.5-5.1); SODIUM 133 mmol/L (136-145); TCO2 19 mmol/L (25-35)
[2019-04-25 06:55] LABS: BASO# 0.09 X1000 (0.0-0.2); BASO% 0.8 % (0.0-0.8); EOS# 0.15 X1000 (0.0-0.7); EOS% 1.4 % (0.0-10.0); HEMATOCRIT 30.8 % (42.0-52.0); HEMOGLOBIN 10.5 g/dL (14.0-18.0); IMM GRAN# 0.14 X1000 (0.0-0.04); IMM GRAN% 1.3 % (0.0-0.5); LYMPH# 0.79 X1000 (1.2-3.4); LYMPH% 7.2 % (20.5-51.1); MCH 31.7 PG (27-31); MCHC 34.1 g/dL (33-37); MCV 93.1 FL (81-99); MONO# 0.81 X1000 (0.11-0.59); MONO% 7.4 % (1.7-9.3); MPV 8.4 FL (7.4-10.4); NEUT# 9.03 X1000 (1.4-6.5); NEUT% 81.9 % (42.2-75.2); PLT 434 X1000 (130-400); RBC 3.31 XMIL (4.7-6.1); RDW 13.8 % (11.5-14.5); WBC 11.01 X1000 (4.8-10.8)
[2019-04-25] MEDS ORDERED: SAMSCA PO ONE (08:01)
[2019-04-25] MEDS: MILK OF MAGNESIA PO SCH (09:06)
[2019-04-25] MEDS: FISH OIL CONCENTRATE PO SCH (09:06)
[2019-04-25] MEDS: FERROUS SULFATE PO SCH (09:06)
[2019-04-25] MEDS: CULTURELLE PO SCH (09:06)
[2019-04-25] MEDS: THERA M PLUS PO SCH (09:06)
[2019-04-25] MEDS: NEUTRA-PHOS PO SCH (09:07)
[2019-04-25] MEDS: MIRALAX PO SCH (09:07)
[2019-04-25] MEDS: VANCOMYCIN 1,500 MG in NS 250 ML IV SCH ×3 (09:10→18:07)
--- NOTE | 2019-04-25 11:13 | PROGRESS NOTE ---
DATE: 04/25/2019 SUBJECTIVE: The patient reports feeling fine. Denies any fever or chills. Continues to be weak. OBJECTIVE: Vital Signs: Temperature 97.8 degrees, heart rate 65, respiratory rate 18, blood pressure 95/54, and O2 saturation 97% on room air. General: On examination, this is a chronically ill-appearing 78-year-old male, lying in bed, in no acute distress. Cardiovascular: S1 and S2 heard. No murmurs, gallops, or rubs. Regular rate and rhythm. Respiratory: Minimal coarse breath sounds noted in both pulmonary bases. Patient not using any accessory muscles. Abdomen: Soft, nontender to palpation. Bowel sounds present. No organomegaly. Extremities: No clubbing, cyanosis, or edema. Peripheral pulses present in both legs. Neurological: Patient alert and oriented x3. Moves 4 extremities. LABORATORY DATA: White cell count 11, hemoglobin 10.5, hematocrit 30.8, platelets 434,000 with sodium 133 and creatinine 0.4. ASSESSMENT AND PLAN: 1. Community-acquired pneumonia, resolved. The patient has received 10 days of Levaquin 750 mg. 2. Methicillin-resistant Staphylococcus aureus infection of the right biceps. The patient continues to be on vancomycin day number 2. Will complete 10 days of IV antibiotics. 3. Hyponatremia secondary to syndrome of inappropriate antidiuretic hormone secretion. We will provide 1 dose of Samsca. Sodium is better today. 4. Constipation. We will continue with stool softeners. 5. Chronic obstructive pulmonary disease, not in exacerbation. We will continue to monitor. 6. Disposition. The patient continues to be very weak. He is barely able to stand up, so at this point we [facility] [place] [facility] [place] [facility]. The patient is out of rehab days today, so it is going to be the first days of May. cc: Stevie Louis MD
[2019-04-25 12:38] LABS: INR 1.06; PROTIME 14.4 Seconds (11.0-16.0)
[2019-04-25] MEDS ORDERED: NS 250 ML ONE (14:10)
--- NOTE | 2019-04-25 17:03 | Diag Imaging Result Doc PS360 ---
CHEST-PORTABLE - 04/25/2019 INDICATION: PICC Placement COMPARISON: 04/16/2019 FINDINGS: There is a left PICC line with the tip curving somewhat upwards probably in the confluence of the brachiocephalic veins toward the upper SVC. There is some stable linear atelectasis and mild linear infiltrate in the lateral left upper lobe. There are some stable fibrosis at the lung bases as well. The right lung remains clear. Heart size is normal. IMPRESSION: Left PICC line tip is probably at the confluence of the brachiocephalic veins or the upper SVC. Electronically signed by Himanshu Powell 04/25/2019 5:01 PM
[2019-04-26] MEDS: NORCO-5 PO PRN ×3 (00:27→18:09)
--- NOTE | 2019-04-26 01:14 | EKG Report ---
Test Performed on : 04/26/2019 01:11:22 AM Test Reason : HIGH HEART RATE Blood Pressure : / mmHG Vent. Rate : 141 BPM Atrial Rate : 159 BPM P-R Int : 000 ms QRS Dur : 090 ms QT Int : 312 ms P-R-T Axes : 000 019 073 degrees QTc Int : 477 ms Atrial fibrillation. with rapid ventricular response. Nonspecific ST abnormality Abnormal ECG When compared with ECG of 15-APR-2019 03:09, Atrial fibrillation. has replaced Sinus rhythm. Vent. rate has increased BY [address] now depressed in Anterior leads Confirmed by Chris Bernstein MD ([id number]) on 04/30/2019 9:33:27 PM
[2019-04-26] MEDS: DUONEB (A & A) INH SCH ×2 (04:45→08:21)
[2019-04-26] MEDS: LOVENOX SUBQ SCH (05:36)
[2019-04-26 06:20] LABS: BASO# 0.08 X1000 (0.0-0.2); BASO% 0.8 % (0.0-0.8); EOS# 0.15 X1000 (0.0-0.7); EOS% 1.5 % (0.0-10.0); HEMATOCRIT 29.2 % (42.0-52.0); HEMOGLOBIN 9.5 g/dL (14.0-18.0); IMM GRAN# 0.14 X1000 (0.0-0.04); IMM GRAN% 1.4 % (0.0-0.5); LYMPH# 1.06 X1000 (1.2-3.4); LYMPH% 10.4 % (20.5-51.1); MCHC 32.5 g/dL (33-37); MCV 92.1 FL (81-99); MONO# 1.06 X1000 (0.11-0.59); MONO% 10.4 % (1.7-9.3); MPV 8.3 FL (7.4-10.4); NEUT# 7.67 X1000 (1.4-6.5); NEUT% 75.5 % (42.2-75.2); PLT 420 X1000 (130-400); RBC 3.17 XMIL (4.7-6.1); RDW 13.9 % (11.5-14.5); WBC 10.16 X1000 (4.8-10.8)
[2019-04-26 06:30] LABS: AGAP 9; BUN 26 mg/dL (8-22); CALCIUM 8.3 mg/dL (8.8-10.2); CHLORIDE 106 mmol/L (98-107); COSMO 274; CREATININE 0.5 mg/dL (0.7-1.2); ESTIMATED GFR > 60; GLUCOSE 118 mg/dL (70-104); PHOSPHORUS 1.6 mg/dL (2.7-4.5); SODIUM 134 mmol/L (136-145); TCO2 19 mmol/L (25-35)
[2019-04-26] MEDS ORDERED: DUONEB (A & A) INH PRN (08:42)
[2019-04-26] MEDS ORDERED: CARDIZEM IV ONE (08:46)
[2019-04-26] MEDS ORDERED: NS 250 ML IV ONE (08:46)
[2019-04-26] MEDS ORDERED: XOPENEX NEB INH ONE (08:49)
[2019-04-26] MEDS ORDERED: ATROVENT NEB INH ONE (08:49)
--- NOTE | 2019-04-26 08:51 | EKG Report ---
Test Performed on : 04/26/2019 08:40:25 AM Test Reason : A-FIB Blood Pressure : / mmHG Vent. Rate : 127 BPM Atrial Rate : 122 BPM P-R Int : 000 ms QRS Dur : 090 ms QT Int : 312 ms P-R-T Axes : 000 015 084 degrees QTc Int : 453 ms Atrial fibrillation. with rapid ventricular response. ST depression, consider subendocardial injury Abnormal ECG When compared with ECG of 26-APR-2019 01:11, (Unconfirmed) No significant change was found Confirmed by Chris Bernstein MD ([id number]) on 04/30/2019 9:32:50 PM
[2019-04-26] MEDS: THERA M PLUS PO SCH (09:02)
[2019-04-26] MEDS: CULTURELLE PO SCH (09:02)
[2019-04-26] MEDS: FERROUS SULFATE PO SCH (09:02)
[2019-04-26] MEDS: FISH OIL CONCENTRATE PO SCH (09:09)
[2019-04-26] MEDS: CARDIZEM PO SCH ×3 (09:09→20:34)
[2019-04-26] MEDS: MILK OF MAGNESIA PO SCH (09:13)
[2019-04-26] MEDS: MIRALAX PO SCH (09:14)
[2019-04-26] MEDS: NEUTRA-PHOS PO SCH ×3 (09:14→18:09)
[2019-04-26] MEDS ORDERED: CALCIUM CHLORIDE 1 GM in NS 100 ML IV ONE (09:30)
[2019-04-26] MEDS ORDERED: MAGNESIUM SULFATE 1 GM/D5W 1 GM/100 ML IVPB IV ONE (09:37)
[2019-04-26] MEDS: XOPENEX NEB INH SCH ×3 (09:46→21:26)
[2019-04-26] MEDS: ATROVENT NEB INH SCH ×3 (09:46→21:25)
[2019-04-26] MEDS ORDERED: SODIUM PHOSPHATE 30 MMOL in NS 250 ML IV ONE (10:00)
--- NOTE | 2019-04-26 10:22 | Diag Imaging Result Doc PS360 ---
EXAM: CHEST-PORTABLE - 04/26/2019 HISTORY: sob TECHNIQUE: Portable chest one view COMPARISON: 04/25/2019 FINDINGS: Inspiration is somewhat shallow. There is perihilar left upper lobe atelectasis/infiltrate similar to prior. There is basilar scarring similar to prior. There are no other acute changes identified. There is no evidence of pleural effusion or pneumothorax. The PICC appears stable in position near the junction of the left innominate vein and superior vena cava. IMPRESSION: Somewhat shallow inspiration. Left upper lobe atelectasis/infiltrate similar to prior. Electronically signed by Mitchell Staley 04/26/2019 10:19 AM
--- NOTE | 2019-04-26 12:09 | PROGRESS NOTE ---
DATE: 04/26/2019 SUBJECTIVE: Patient reports feeling fine. Denies palpitations or chest pain. According to nursing staff, overnight, he has developed atrial fibrillation RVR with heart rate of 140 but converted spontaneously. As we mentioned before, patient was not symptomatic. No report of any complaints at this time. OBJECTIVE: Vital Signs: Temperature 97.4 degrees, heart rate 128, respiratory rate 24, blood pressure 98/70, O2 saturation 100% on room air. General: This is a chronically ill-appearing, 78-year-old male, lying in bed, in no acute distress. Cardiovascular: S1, S2 heard. No murmurs, gallops, or rubs. Regular rate and rhythm. Respiratory: Coarse breath sounds noted in both pulmonary bases. Patient not using any accessory muscles or having work of breathing. Abdomen: Soft, nontender to palpation. Bowel sounds present. No organomegaly. Extremities: No clubbing, cyanosis, or edema. Peripheral pulses present in both legs. There is a small wound covered by dressing in the right biceps. Neurological: Patient alert and oriented x3. Moves 4 extremities. LABORATORY DATA: White cell count 10.6, hemoglobin 9.5, hematocrit 29.2, platelets 420,000 with normal BMP. Except phosphorus is 1.6. ASSESSMENT AND PLAN: 1. New onset atrial fibrillation with rapid ventricular response. The patient now is back to sinus rhythm. At this point, we are going to monitor this patient closely. We will start Cardizem 30 mg p.o. 6 hours. We will order an echo and if needed, we will consult Cardiology. 2. Community-acquired pneumonia resolved. 3. Methicillin-resistant Staphylococcus aureus infection of the right biceps. Patient is on vancomycin day #3. Will complete 10 days of antibiotics. 4. Hyponatremia secondary to syndrome of inappropriate antidiuretic hormone secretion. Patient has received Samsca yesterday and sodium is almost back to normal. 5. Constipation. We will continue with stool softeners. 6. Chronic obstructive pulmonary disease. Patient is not in an exacerbation. We will provide breathing treatments as needed only. DISPOSITION: At this point, as we mentioned before, we will monitor this patient closely for this new onset atrial fibrillation. He is back to sinus rhythm. We will check an echocardiogram. We will go from there. cc: Stevie Louis MD
[2019-04-26] MEDS ORDERED: SODIUM PHOSPHATE 35 MMOL in NS 250 ML IV ONE (12:30)
[2019-04-26] MEDS: VANCOMYCIN 1,500 MG in NS 250 ML IV SCH (18:09)
[2019-04-26] MEDS: PULMICORT INH SCH (21:26)
[2019-04-27] MEDS: CARDIZEM PO SCH ×4 (01:41→20:55)
[2019-04-27] MEDS: ATROVENT NEB INH SCH ×4 (03:12→21:25)
[2019-04-27] MEDS: XOPENEX NEB INH SCH ×4 (03:12→21:25)
[2019-04-27] MEDS: NORCO-5 PO PRN ×3 (05:08→21:05)
[2019-04-27 05:20] LABS: BASO# 0.06 X1000 (0.0-0.2); BASO% 0.8 % (0.0-0.8); EOS# 0.19 X1000 (0.0-0.7); EOS% 2.6 % (0.0-10.0); HEMATOCRIT 28.7 % (42.0-52.0); HEMOGLOBIN 9.2 g/dL (14.0-18.0); IMM GRAN# 0.13 X1000 (0.0-0.04); IMM GRAN% 1.8 % (0.0-0.5); LYMPH% 14.8 % (20.5-51.1); MCH 30.2 PG (27-31); MCHC 32.1 g/dL (33-37); MCV 94.1 FL (81-99); MONO# 0.87 X1000 (0.11-0.59); MONO% 11.7 % (1.7-9.3); MPV 8.1 FL (7.4-10.4); NEUT# 5.06 X1000 (1.4-6.5); NEUT% 68.3 % (42.2-75.2); PLT 381 X1000 (130-400); RBC 3.05 XMIL (4.7-6.1); RDW 14.3 % (11.5-14.5); WBC 7.41 X1000 (4.8-10.8)
[2019-04-27 05:39] LABS: AGAP 10; ALBUMIN 2.9 g/dL (3.5-5.0); BUN 28 mg/dL (8-22); CALCIUM 8.2 mg/dL (8.8-10.2); CHLORIDE 103 mmol/L (98-107); COSMO 269; CREATININE 0.5 mg/dL (0.7-1.2); ESTIMATED GFR > 60; GLUCOSE 113 mg/dL (70-104); PHOSPHORUS 2.1 mg/dL (2.7-4.5); POTASSIUM 4.1 mmol/L (3.5-5.1); SODIUM 131 mmol/L (136-145); TCO2 18 mmol/L (25-35)
[2019-04-27] MEDS: LOVENOX SUBQ SCH (06:11)
--- NOTE | 2019-04-27 08:44 | ECHO REPORT ---
ORDER DATE: 04/26/2019 MEASUREMENTS: Septal thickness 1.4, left ventricular internal diameter in diastole 3.2, posterior wall thickness 1.4, left ventricular internal diameter in systole 1.8, aortic root 4.3, left atrium 4.1. SUMMARY: 1. Fair quality study. There were no true parasternal windows. 2. Moderate fibrocalcific changes of aortic valve demonstrated with significantly reduced aortic valve leaflet mobility evident. The peak gradient across the aortic valve is 80 mmHg with mean gradient of 56 mmHg. The calculated aortic valve area is 0.9 cm sq, suggesting severe aortic stenosis. There is mild aortic regurgitation. Moderate mitral annular calcification is demonstrated. Tricuspid valve was without evidence of structural abnormality, while pulmonic valve was not well demonstrated. There is mild tricuspid regurgitation. The estimated systolic PA pressure by Doppler is 35 mmHg. The aortic root is mildly enlarged. 3. Normal left ventricular chamber size with mild concentric left hypertrophy demonstrated. The estimated left ventricular ejection fraction appears to be at least 70%. No regional wall motion abnormality is evident. Doppler suggests grade 1 left ventricular diastolic dysfunction. The left atrium is mild to moderately enlarged on 2-dimensional images. The right atrium and right ventricle are normal in size with grossly preserved right ventricular systolic function. 4. No pericardial effusion. 5. Inferior vena cava not well demonstrated. CONCLUSIONS: 1. Severe calcific aortic stenosis with mild aortic regurgitation. 2. Moderate mitral annular calcification. 3. Mild tricuspid regurgitation with estimated systolic PA pressure of 35 mmHg. 4. Mild concentric left hypertrophy with estimated left ventricular ejection fraction at least 70%. 5. Grade 1 left ventricular diastolic dysfunction is suggested. 6. Mild to moderate left atrial enlargement. 7. Mild enlargement of the aortic root and proximal ascending aorta. cc: MD Stevie Fink MD
[2019-04-27] MEDS: PULMICORT INH SCH ×2 (11:12→21:25)
[2019-04-27] MEDS: CULTURELLE PO SCH (11:31)
[2019-04-27] MEDS: FERROUS SULFATE PO SCH (11:31)
[2019-04-27] MEDS: THERA M PLUS PO SCH (11:31)
[2019-04-27] MEDS: MIRALAX PO SCH ×2 (11:32→11:35)
[2019-04-27] MEDS: MILK OF MAGNESIA PO SCH ×2 (11:32→11:35)
[2019-04-27] MEDS: NEUTRA-PHOS PO SCH ×3 (11:32→18:59)
[2019-04-27] MEDS: FISH OIL CONCENTRATE PO SCH (11:33)
--- NOTE | 2019-04-27 13:11 | PROGRESS NOTE ---
DATE: 04/27/2019 SUBJECTIVE: Patient reports feeling fine. Denies any chest pain, any chest pressure. No acute issues noted as per nursing staff overnight. OBJECTIVE: Vital Signs: Temperature 97.6 degrees, heart rate 69, respiratory rate 16, blood pressure 114/46, O2 saturation 95% on 2 L nasal cannula. General: This is a chronically ill- appearing, 78-year-old male, lying in bed, in no acute distress. Cardiovascular: S1, S2 heard. No murmurs, gallops, or rubs. Regular rate and rhythm. Respiratory: Coarse breath sounds noted in both pulmonary bases. Patient is not using any accessory muscles or having work of breathing. Abdomen: Soft, nontender to palpation. Bowel sounds present. No organomegaly. Extremities: No clubbing, cyanosis, or edema. Peripheral pulses present in both legs. Neurologic: The patient is alert, oriented x3. Moves all 4 extremities. Extremities: There is a small wound covered by dressing on the right biceps. LABORATORY DATA: Reviewed. ASSESSMENT AND PLAN: 1. New onset atrial fibrillation with rapid ventricular response. Patient is back to sinus rhythm. We will continue with Cardizem 30 mg p.o. q.6 hours. Echocardiogram done revealed severe calcific aortic stenosis with mild aortic regurgitation but the ejection fraction is 70%. At this point, we will continue to monitor this patient closely. 2. Community-acquired pneumonia, resolved. 3. Methicillin-resistant Staphylococcus aureus infection in the right biceps. Patient is on vancomycin IV, day #4. Will complete 10 days of antibiotics. 4. 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 The sodium is 131. Provide 1 dose of Samsca today. 5. Constipation. Patient is on stool softeners. We will continue with the same. 6. Chronic obstructive pulmonary disease. Patient is not in any exacerbation. We will provide breathing treatments as needed only. 7. Disposition. The patient is here in the hospital receiving also physical therapy. He is very weak. We are going to keep this patient until May when we will start looking for permanent placement for him. cc: Stevie Louis MD
[2019-04-27] MEDS: VANCOMYCIN 1,500 MG in NS 250 ML IV SCH (17:43)
[2019-04-28] MEDS: CARDIZEM PO SCH ×4 (02:29→20:17)
[2019-04-28] MEDS: ATROVENT NEB INH SCH ×4 (03:21→21:43)
[2019-04-28] MEDS: XOPENEX NEB INH SCH ×4 (03:21→21:43)
[2019-04-28] MEDS: NORCO-5 PO PRN ×2 (05:18→20:17)
[2019-04-28] MEDS: LOVENOX SUBQ SCH (05:18)
[2019-04-28 06:05] LABS: BASO# 0.05 X1000 (0.0-0.2); BASO% 0.8 % (0.0-0.8); EOS# 0.22 X1000 (0.0-0.7); EOS% 3.4 % (0.0-10.0); HEMATOCRIT 27.6 % (42.0-52.0); IMM GRAN# 0.09 X1000 (0.0-0.04); IMM GRAN% 1.4 % (0.0-0.5); LYMPH# 1.33 X1000 (1.2-3.4); LYMPH% 20.6 % (20.5-51.1); MCH 30.4 PG (27-31); MCHC 32.6 g/dL (33-37); MCV 93.2 FL (81-99); MONO# 0.86 X1000 (0.11-0.59); MONO% 13.3 % (1.7-9.3); MPV 8.3 FL (7.4-10.4); NEUT% 60.5 % (42.2-75.2); PLT 371 X1000 (130-400); RBC 2.96 XMIL (4.7-6.1); WBC 6.45 X1000 (4.8-10.8)
[2019-04-28 06:20] LABS: AGAP 8; ALBUMIN 2.9 g/dL (3.5-5.0); BUN 25 mg/dL (8-22); CHLORIDE 99 mmol/L (98-107); COSMO 263; CREATININE 0.4 mg/dL (0.7-1.2); ESTIMATED GFR > 60; GLUCOSE 91 mg/dL (70-104); POTASSIUM 4.2 mmol/L (3.5-5.1); SODIUM 129 mmol/L (136-145); TCO2 21 mmol/L (25-35)
[2019-04-28] MEDS: NEUTRA-PHOS PO SCH ×3 (09:35→16:58)
[2019-04-28] MEDS: MILK OF MAGNESIA PO SCH (09:35)
[2019-04-28] MEDS: FERROUS SULFATE PO SCH (09:36)
[2019-04-28] MEDS: FISH OIL CONCENTRATE PO SCH (09:36)
[2019-04-28] MEDS: CULTURELLE PO SCH (09:36)
[2019-04-28] MEDS: MIRALAX PO SCH (09:36)
[2019-04-28] MEDS: THERA M PLUS PO SCH (09:36)
[2019-04-28] MEDS ORDERED: SAMSCA PO ONE (09:56)
[2019-04-28] MEDS: PULMICORT INH SCH ×2 (10:35→21:43)
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
[2019-04-28] MEDS: VANCOMYCIN 1,500 MG in NS 250 ML IV SCH (16:58)
[2019-04-29] MEDS: CARDIZEM PO SCH ×4 (01:45→22:46)
[2019-04-29] MEDS: NORCO-5 PO PRN ×4 (01:47→22:46)
[2019-04-29] MEDS: ATROVENT NEB INH SCH ×4 (04:00→22:33)
[2019-04-29] MEDS: XOPENEX NEB INH SCH ×4 (04:00→22:33)
[2019-04-29] MEDS: LOVENOX SUBQ SCH (05:21)
[2019-04-29 06:02] LABS: BASO# 0.07 X1000 (0.0-0.2); EOS# 0.09 X1000 (0.0-0.7); EOS% 1.3 % (0.0-10.0); HEMATOCRIT 28.4 % (42.0-52.0); HEMOGLOBIN 9.1 g/dL (14.0-18.0); IMM GRAN% 1.4 % (0.0-0.5); LYMPH# 1.05 X1000 (1.2-3.4); LYMPH% 14.7 % (20.5-51.1); MCH 30.2 PG (27-31); MCV 94.4 FL (81-99); MONO# 0.98 X1000 (0.11-0.59); MONO% 13.7 % (1.7-9.3); MPV 8.4 FL (7.4-10.4); NEUT# 4.86 X1000 (1.4-6.5); NEUT% 67.9 % (42.2-75.2); PLT 367 X1000 (130-400); RBC 3.01 XMIL (4.7-6.1); RDW 14.1 % (11.5-14.5); WBC 7.15 X1000 (4.8-10.8)
[2019-04-29 06:19] LABS: AGAP 6; ALBUMIN 2.8 g/dL (3.5-5.0); BUN 22 mg/dL (8-22); CALCIUM 8.1 mg/dL (8.8-10.2); CHLORIDE 106 mmol/L (98-107); COSMO 273; CREATININE 0.4 mg/dL (0.7-1.2); ESTIMATED GFR > 60; GLUCOSE 94 mg/dL (70-104); PHOSPHORUS 2.1 mg/dL (2.7-4.5); POTASSIUM 4.5 mmol/L (3.5-5.1); SODIUM 135 mmol/L (136-145); TCO2 23 mmol/L (25-35)
[2019-04-29] MEDS: FISH OIL CONCENTRATE PO SCH (08:56)
[2019-04-29] MEDS: FERROUS SULFATE PO SCH (08:56)
[2019-04-29] MEDS: THERA M PLUS PO SCH (08:56)
[2019-04-29] MEDS: CULTURELLE PO SCH (08:56)
[2019-04-29] MEDS: NEUTRA-PHOS PO SCH ×3 (08:56→18:04)
[2019-04-29] MEDS: MIRALAX PO SCH (09:03)
[2019-04-29] MEDS: MILK OF MAGNESIA PO SCH (09:03)
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
[2019-04-29] MEDS: VANCOMYCIN 1,500 MG in NS 250 ML IV SCH (11:16)
[2019-04-29] MEDS: PULMICORT INH SCH ×2 (11:42→22:34)
[2019-04-30] MEDS: ATROVENT NEB INH SCH ×4 (03:08→22:10)
[2019-04-30] MEDS: XOPENEX NEB INH SCH ×4 (03:08→22:06)
[2019-04-30] MEDS: LOVENOX SUBQ SCH (05:18)
[2019-04-30] MEDS: VANCOMYCIN 1,500 MG in NS 250 ML IV SCH ×2 (05:18→22:19)
[2019-04-30] MEDS: CARDIZEM PO SCH ×4 (05:18→21:27)
[2019-04-30 06:01] LABS: BASO# 0.07 X1000 (0.0-0.2); BASO% 1.4 % (0.0-0.8); EOS# 0.12 X1000 (0.0-0.7); EOS% 2.4 % (0.0-10.0); HEMOGLOBIN 8.4 g/dL (14.0-18.0); IMM GRAN# 0.07 X1000 (0.0-0.04); IMM GRAN% 1.4 % (0.0-0.5); LYMPH# 0.98 X1000 (1.2-3.4); LYMPH% 19.3 % (20.5-51.1); MCH 30.5 PG (27-31); MCHC 32.3 g/dL (33-37); MCV 94.5 FL (81-99); MONO# 0.79 X1000 (0.11-0.59); MONO% 15.6 % (1.7-9.3); MPV 8.2 FL (7.4-10.4); NEUT# 3.05 X1000 (1.4-6.5); NEUT% 59.9 % (42.2-75.2); PLT 294 X1000 (130-400); RBC 2.75 XMIL (4.7-6.1); RDW 13.9 % (11.5-14.5); WBC 5.08 X1000 (4.8-10.8)
[2019-04-30 06:06] LABS: AGAP 7; BUN 21 mg/dL (8-22); CALCIUM 8.1 mg/dL (8.8-10.2); CHLORIDE 100 mmol/L (98-107); COSMO 267; CREATININE 0.5 mg/dL (0.7-1.2); ESTIMATED GFR > 60; GLUCOSE 93 mg/dL (70-104); PHOSPHORUS 2.1 mg/dL (2.7-4.5); POTASSIUM 4.2 mmol/L (3.5-5.1); SODIUM 132 mmol/L (136-145); TCO2 25 mmol/L (25-35)
[2019-04-30] MEDS: FISH OIL CONCENTRATE PO SCH (09:17)
[2019-04-30] MEDS: NORCO-5 PO PRN ×3 (09:17→21:27)
[2019-04-30] MEDS: THERA M PLUS PO SCH (09:17)
[2019-04-30] MEDS: NEUTRA-PHOS PO SCH ×3 (09:17→18:03)
[2019-04-30] MEDS: FERROUS SULFATE PO SCH (09:17)
[2019-04-30] MEDS: CULTURELLE PO SCH (09:17)
[2019-04-30] MEDS: MILK OF MAGNESIA PO SCH (09:19)
[2019-04-30] MEDS: MIRALAX PO SCH (09:20)
[2019-04-30] MEDS: PULMICORT INH SCH ×2 (10:07→22:06)
[2019-04-30] MEDS ORDERED: SAMSCA PO ONE (13:35)
[2019-04-30] MEDS: LANOXIN IV SCH ×2 (14:20→21:27)
[2019-04-30] MEDS ORDERED: SODIUM PHOSPHATE 40 MEQ in NS 250 ML IV ONE (14:30)
--- NOTE | 2019-04-30 14:47 | PROGRESS NOTE ---
DATE: 04/30/2019 SUBJECTIVE: The patient has no major complaints. OBJECTIVE: Vital Signs: Blood pressure is 108/63, heart rate of 66, respiratory rate of 12, temperature of 97.4 degrees, 96% on 2 liters. Cardiovascular: Regular rate and rhythm. Pulmonary: Bilateral breath sounds, clear to auscultation. Gastrointestinal: Soft, nontender, nondistended. Bowel sounds are positive. LABORATORY DATA: White count 5, hemoglobin and hematocrit of 8 and 26, platelets 294,000. Sodium 132, phosphorus of 2.1. PROBLEM LIST: 1. Atrial fibrillation with rapid ventricular response. He is still pretty tachycardic. He is on Cardizem 30 every 6 hours. I think I may give him a little bit of digoxin too and see how he does with that. We will continue to hopefully get that situated. 2. Community-acquired pneumonia. He has completed treatment. 3. MRSA infection of the right arm. He is on vancomycin. This will be day 2 of antibiotics, although it looks like it was first started on the , so we are going to say probably 6 days of vancomycin. 4. History of bronchioalveolar cancer with hyponatremia and SIADH. His sodium level seems better. He is on fluid restriction. Probably redose him with Samsca today. DISPOSITION: We are looking at rehab at the time of discharge. I think once his atrial fibrillation is controlled, but I think that possibly will occur soon. I am going to continue to follow closely. cc: Андрей Nguyen MD
[2019-05-01] MEDS: LANOXIN IV SCH (03:08)
[2019-05-01] MEDS: CARDIZEM PO SCH ×4 (03:09→20:08)
[2019-05-01] MEDS: ATROVENT NEB INH SCH ×4 (03:25→22:17)
[2019-05-01] MEDS: XOPENEX NEB INH SCH ×4 (03:25→22:17)
[2019-05-01 06:27] LABS: AGAP 6; BUN 18 mg/dL (8-22); CALCIUM 8.1 mg/dL (8.8-10.2); CHLORIDE 103 mmol/L (98-107); COSMO 272; CREATININE 0.4 mg/dL (0.7-1.2); ESTIMATED GFR > 60; GLUCOSE 91 mg/dL (70-104); PHOSPHORUS 2.5 mg/dL (2.7-4.5); POTASSIUM 4.2 mmol/L (3.5-5.1); SODIUM 135 mmol/L (136-145); TCO2 26 mmol/L (25-35)
[2019-05-01 06:37] LABS: BASO# 0.04 X1000 (0.0-0.2); BASO% 0.6 % (0.0-0.8); EOS% 1.5 % (0.0-10.0); HEMATOCRIT 27.1 % (42.0-52.0); HEMOGLOBIN 8.6 g/dL (14.0-18.0); IMM GRAN# 0.07 X1000 (0.0-0.04); IMM GRAN% 1.1 % (0.0-0.5); LYMPH# 0.82 X1000 (1.2-3.4); LYMPH% 12.6 % (20.5-51.1); MCH 30.1 PG (27-31); MCHC 31.7 g/dL (33-37); MCV 94.8 FL (81-99); MONO# 0.85 X1000 (0.11-0.59); MONO% 13.1 % (1.7-9.3); MPV 8.2 FL (7.4-10.4); NEUT# 4.61 X1000 (1.4-6.5); NEUT% 71.1 % (42.2-75.2); PLT 288 X1000 (130-400); RBC 2.86 XMIL (4.7-6.1); RDW 13.8 % (11.5-14.5); WBC 6.49 X1000 (4.8-10.8)
[2019-05-01] MEDS: MIRALAX PO SCH (11:13)
[2019-05-01] MEDS: NEUTRA-PHOS PO SCH ×3 (11:13→16:48)
[2019-05-01] MEDS: FERROUS SULFATE PO SCH (11:14)
[2019-05-01] MEDS: ELIQUIS PO SCH ×2 (11:14→20:08)
[2019-05-01] MEDS: THERA M PLUS PO SCH (11:14)
[2019-05-01] MEDS: CULTURELLE PO SCH (11:14)
[2019-05-01] MEDS: FISH OIL CONCENTRATE PO SCH (11:14)
[2019-05-01] MEDS: MILK OF MAGNESIA PO SCH (11:14)
[2019-05-01] MEDS: PULMICORT INH SCH ×2 (11:34→22:17)
[2019-05-01] MEDS: NORCO-5 PO PRN (14:30)
--- NOTE | 2019-05-01 15:30 | PROGRESS NOTE ---
DATE: 05/01/2019 SUBJECTIVE: Patient has no major complaints. He seems to be doing better. OBJECTIVE: Vital Signs: Blood pressure is 90/47, heart rate of 76, respiratory rate 18, temperature 98.5 degrees, 97% on 2 L. Cardiovascular: Regular rate and rhythm. Pulmonary: Bilateral breath sounds diminished at the bases. GI: Soft, nontender, nondistended. Bowel sounds are positive. LABORATORY DATA: White count 6, hemoglobin and hematocrit 8 and 27, platelets 288,000. Basic was normal. PROBLEM LIST: 1. Atrial fibrillation with rapid ventricular response. That is improved. He has been placed on digoxin which will probably continue every other day. 2. Methicillin-resistant Staphylococcus aureus cellulitis. He seems to be doing better from that standpoint. We will complete 10 days of antibiotics and then stop. 3. Pneumonia. He has completed treatment. 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 5. Hyponatremia is stable. Continue to follow. He is seems to be doing okay on Samsca. We will give him a break today and see how his numbers look. DISPOSITION: We are looking at rehab hopefully soon. cc: Андрей Nguyen MD
[2019-05-01] MEDS: VANCOMYCIN 1,500 MG in NS 250 ML IV SCH (16:48)
[2019-05-02] MEDS: XOPENEX NEB INH SCH ×4 (03:00→21:05)
[2019-05-02] MEDS: ATROVENT NEB INH SCH ×4 (03:01→21:05)
[2019-05-02 05:47] LABS: AGAP 9; BUN 18 mg/dL (8-22); CHLORIDE 97 mmol/L (98-107); COSMO 264; CREATININE 0.4 mg/dL (0.7-1.2); ESTIMATED GFR > 60; GLUCOSE 96 mg/dL (70-104); POTASSIUM 4.2 mmol/L (3.5-5.1); SODIUM 131 mmol/L (136-145); TCO2 25 mmol/L (25-35)
[2019-05-02 06:07] LABS: BASO# 0.05 X1000 (0.0-0.2); BASO% 0.9 % (0.0-0.8); EOS# 0.13 X1000 (0.0-0.7); EOS% 2.2 % (0.0-10.0); HEMATOCRIT 26.9 % (42.0-52.0); HEMOGLOBIN 8.5 g/dL (14.0-18.0); IMM GRAN# 0.07 X1000 (0.0-0.04); IMM GRAN% 1.2 % (0.0-0.5); LYMPH# 0.96 X1000 (1.2-3.4); LYMPH% 16.3 % (20.5-51.1); MCHC 31.6 g/dL (33-37); MCV 95.1 FL (81-99); MONO# 0.72 X1000 (0.11-0.59); MONO% 12.2 % (1.7-9.3); MPV 8.5 FL (7.4-10.4); NEUT# 3.95 X1000 (1.4-6.5); NEUT% 67.2 % (42.2-75.2); PLT 284 X1000 (130-400); RBC 2.83 XMIL (4.7-6.1); RDW 13.5 % (11.5-14.5); WBC 5.88 X1000 (4.8-10.8)
[2019-05-02] MEDS: PULMICORT INH SCH ×2 (07:54→21:05)
[2019-05-02] MEDS: CARDIZEM PO SCH ×4 (08:48→20:28)
[2019-05-02] MEDS: MIRALAX PO SCH (08:49)
[2019-05-02] MEDS: FERROUS SULFATE PO SCH (08:50)
[2019-05-02] MEDS: CULTURELLE PO SCH (08:50)
[2019-05-02] MEDS: LANOXIN PO SCH (08:50)
[2019-05-02] MEDS: THERA M PLUS PO SCH (08:51)
[2019-05-02] MEDS: MILK OF MAGNESIA PO SCH (08:51)
[2019-05-02] MEDS: NEUTRA-PHOS PO SCH ×3 (08:51→16:06)
[2019-05-02] MEDS: FISH OIL CONCENTRATE PO SCH (08:51)
[2019-05-02] MEDS: ELIQUIS PO SCH ×2 (08:51→20:28)
[2019-05-02] MEDS: NORCO-5 PO PRN ×2 (11:05→20:27)
[2019-05-02] MEDS: VANCOMYCIN 1,500 MG in NS 250 ML IV SCH (11:30)
[2019-05-02] MEDS ORDERED: SAMSCA PO ONE (13:00)
--- NOTE | 2019-05-02 13:07 | PROGRESS NOTE ---
DATE: 05/02/2019 SUBJECTIVE: Patient has no major complaints. OBJECTIVE: Vital signs: Blood pressure is 100/53, heart rate of 88, respiratory rate 18, temperature 98.2, 99% on 2 L. Cardiovascular: Regular rate and rhythm. Pulmonary: Bilateral breath sounds, clear to auscultation. GI: Soft, nontender, nondistended. Bowel sounds are positive. DIAGNOSTIC DATA: White count 5.8, hemoglobin and hematocrit 8.5 and 26, platelets 284,000. Basic was normal. PROBLEM LIST: 1. Atrial fibrillation with rapid ventricular response. That is resolved. He is on digoxin. Seems to be doing okay. Probably check a level tomorrow and see how that looks. 2. Methicillin-resistant Staphylococcus aureus cellulitis. I think this will be his last day, I believe, of vancomycin to complete 10 days. 3. History of bronchial or alveolar cancer, aware of diagnosis. We will continue to follow. DISPOSITION: 1. We are awaiting approval for rehab bed. 2. Hyponatremia. Sodium has dropped again a little bit today, so it may re-dose with Samsca and see how he does. cc: Андрей Nguyen MD
[2019-05-03] MEDS: XOPENEX NEB INH SCH ×4 (02:59→22:42)
[2019-05-03] MEDS: ATROVENT NEB INH SCH ×4 (02:59→22:43)
[2019-05-03] MEDS: CARDIZEM PO SCH ×4 (05:20→20:36)
[2019-05-03] MEDS: VANCOMYCIN 1,500 MG in NS 250 ML IV SCH ×2 (05:20→23:24)
[2019-05-03 06:26] LABS: BASO# 0.06 X1000 (0.0-0.2); EOS# 0.11 X1000 (0.0-0.7); EOS% 1.8 % (0.0-10.0); HEMATOCRIT 29.9 % (42.0-52.0); HEMOGLOBIN 9.6 g/dL (14.0-18.0); IMM GRAN# 0.06 X1000 (0.0-0.04); LYMPH# 1.07 X1000 (1.2-3.4); LYMPH% 17.2 % (20.5-51.1); MCH 30.4 PG (27-31); MCHC 32.1 g/dL (33-37); MCV 94.6 FL (81-99); MONO% 14.5 % (1.7-9.3); MPV 8.2 FL (7.4-10.4); NEUT# 4.02 X1000 (1.4-6.5); NEUT% 64.5 % (42.2-75.2); PLT 272 X1000 (130-400); RBC 3.16 XMIL (4.7-6.1); RDW 13.3 % (11.5-14.5); WBC 6.22 X1000 (4.8-10.8)
[2019-05-03 06:43] LABS: AGAP 8; BUN 18 mg/dL (8-22); CALCIUM 8.3 mg/dL (8.8-10.2); CHLORIDE 99 mmol/L (98-107); COSMO 264; CREATININE 0.5 mg/dL (0.7-1.2); DIGOXIN 0.2 ng/mL (0.9-2.0); ESTIMATED GFR > 60; GLUCOSE 96 mg/dL (70-104); POTASSIUM 4.4 mmol/L (3.5-5.1); SODIUM 131 mmol/L (136-145); TCO2 24 mmol/L (25-35)
[2019-05-03] MEDS: PULMICORT INH SCH ×2 (07:55→22:43)
[2019-05-03] MEDS: LANOXIN PO SCH (08:36)
[2019-05-03] MEDS: FERROUS SULFATE PO SCH (08:37)
[2019-05-03] MEDS: NEUTRA-PHOS PO SCH ×3 (08:37→17:47)
[2019-05-03] MEDS: NORCO-5 PO PRN ×3 (08:37→20:37)
[2019-05-03] MEDS: CULTURELLE PO SCH (08:37)
[2019-05-03] MEDS: FISH OIL CONCENTRATE PO SCH (08:37)
[2019-05-03] MEDS: ELIQUIS PO SCH ×2 (08:37→20:36)
[2019-05-03] MEDS: MILK OF MAGNESIA PO SCH (08:37)
[2019-05-03] MEDS: MIRALAX PO SCH (08:37)
[2019-05-03] MEDS: THERA M PLUS PO SCH (08:37)
--- NOTE | 2019-05-03 11:44 | PROGRESS NOTE ---
DATE: 05/03/2019 SUBJECTIVE: Patient with no new complaints. PHYSICAL EXAMINATION: Vital Signs: Temp 97.4, pulse 82, although does sporadically jump into the 130s to 150 range, blood pressure 100/60. General: The patient is awake. She is in no distress. She is sitting in the bed, eating breakfast. HEENT: Normocephalic. Neck: Supple. Cardiovascular: Currently rate controlled, irregular rhythm, with frequent episodes of tachycardia. Chest: Clear, nonlabored. Abdomen: Soft, nondistended. Extremities: Moves all extremities. Neurologic: No changes. ASSESSMENT: 1. Atrial fibrillation with rapid ventricular response, currently rate controlled. 2. Methicillin-resistant Staphylococcus aureus cellulitis. He is on vancomycin today. We will stop it after today. 3. History of bronchial cancer. 4. Hyponatremia. 5. Anemia of chronic disease. PLAN: We are going to continue the patient in the hospital until he can transition to rehab. Will stop his vancomycin today. Will continue to follow. Continue Cardizem for his atrial fibrillation. cc: Addison Cevallos MD
[2019-05-04] MEDS: XOPENEX NEB INH SCH ×4 (04:16→21:26)
[2019-05-04] MEDS: ATROVENT NEB INH SCH ×4 (04:16→21:26)
[2019-05-04] MEDS: CARDIZEM PO SCH ×4 (06:38→21:01)
[2019-05-04] MEDS: CULTURELLE PO SCH (08:10)
[2019-05-04] MEDS: NEUTRA-PHOS PO SCH ×3 (08:10→16:29)
[2019-05-04] MEDS: MILK OF MAGNESIA PO SCH (08:10)
[2019-05-04] MEDS: FISH OIL CONCENTRATE PO SCH (08:11)
[2019-05-04] MEDS: LANOXIN PO SCH (08:11)
[2019-05-04] MEDS: FERROUS SULFATE PO SCH (08:11)
[2019-05-04] MEDS: ELIQUIS PO SCH ×2 (08:11→21:02)
[2019-05-04] MEDS: MIRALAX PO SCH (08:11)
[2019-05-04] MEDS: THERA M PLUS PO SCH (08:11)
[2019-05-04] MEDS: NORCO-5 PO PRN ×2 (08:26→21:05)
--- NOTE | 2019-05-04 09:44 | PROGRESS NOTE ---
DATE: 05/04/2019 SUBJECTIVE: The patient is upset about his fluid restriction. He states that he did not know he needed to restrict his fluids, although this has been in place for the past 11 days. OBJECTIVE: Vital Signs: Temperature 98.0 degrees, pulse 90, respiratory rate 18, BP 88/54 to 100/50. General: Patient is awake, in no distress in bed eating breakfast. HEENT: Head normocephalic. Neck: Supple. CV: Irregular rhythm, regular rate. Chest: Clear, nonlabored. Abdomen: Soft, nondistended. Extremities: Moves all extremities. Neurologic: No changes. ASSESSMENT: 1. Atrial fibrillation, currently rate controlled. 2. Anemia of chronic disease. 3. Hyponatremia secondary to syndrome of inappropriate antidiuretic hormone. PLAN: We are going to continue him in the hospital until which time rehab can be obtained. We will follow his blood pressures. Further orders as needed. cc: Addison Cevallos MD
[2019-05-04] MEDS: PULMICORT INH SCH ×2 (09:55→21:26)
[2019-05-05] MEDS: NORCO-5 PO PRN ×3 (02:21→18:58)
[2019-05-05] MEDS: CARDIZEM PO SCH ×4 (02:21→20:23)
[2019-05-05] MEDS: ATROVENT NEB INH SCH ×4 (03:03→21:46)
[2019-05-05] MEDS: XOPENEX NEB INH SCH ×4 (03:03→21:46)
[2019-05-05] MEDS: LANOXIN PO SCH (08:44)
[2019-05-05] MEDS: MILK OF MAGNESIA PO SCH (08:44)
[2019-05-05] MEDS: CULTURELLE PO SCH (08:44)
[2019-05-05] MEDS: THERA M PLUS PO SCH (08:44)
[2019-05-05] MEDS: ELIQUIS PO SCH ×2 (08:44→20:23)
[2019-05-05] MEDS: FERROUS SULFATE PO SCH (08:45)
[2019-05-05] MEDS: FISH OIL CONCENTRATE PO SCH (08:45)
[2019-05-05] MEDS: NEUTRA-PHOS PO SCH ×3 (08:45→16:57)
[2019-05-05] MEDS: MIRALAX PO SCH (08:45)
[2019-05-05] MEDS: PULMICORT INH SCH ×2 (10:41→21:46)
--- NOTE | 2019-05-05 17:54 | PROGRESS NOTE ---
DATE: 05/05/2019 SUBJECTIVE: The patient notes he is feeling okay. Denies any chest pain or palpitations. Denies any focal weakness, although he does state that he is generally weak. Denies any nausea and he was able to eat breakfast without any difficulty. OBJECTIVE: Temperature 98 degrees, pulse 70, respiratory rate 18, BP 83/46.General: The patient is awake, alert. He is in no respiratory distress. HEENT: Normocephalic. Neck supple. Cardiovascular: Regular rate. Chest clear. Abdomen soft. Extremities: Generalized weakness. No edema. ASSESSMENT: 1. Generalized weakness with adult failure to thrive. 2. Atrial fibrillation. 3. Hypotension. Currently he is stable and his blood pressures have been low like this. We may have to back off his Cardizem, but unfortunately each time this has occurred his heart rate is also elevated. We will continue to follow both. 4. Methicillin-resistant Staphylococcus aureus. He is currently off antibiotics. 5. History of alveolar carcinoma. 6. Hyponatremia stable. 7. Anemia of chronic disease. PLAN: We are going to continue the patient in the hospital, continue to follow. Hopefully to rehab soon. cc: Addison Cevallos MD
[2019-05-06] MEDS: CARDIZEM PO SCH ×4 (02:25→21:30)
[2019-05-06] MEDS: XOPENEX NEB INH SCH ×4 (03:13→21:59)
[2019-05-06] MEDS: ATROVENT NEB INH SCH ×4 (03:13→21:59)
[2019-05-06 06:50] LABS: AGAP 8; ALBUMIN 2.9 g/dL (3.5-5.0); ALKALINE PHOSPHATASE 93 U/L (32-122); BUN 23 mg/dL (8-22); CALCIUM 8.1 mg/dL (8.8-10.2); CHLORIDE 97 mmol/L (98-107); COSMO 262; CREATININE 0.4 mg/dL (0.7-1.2); ESTIMATED GFR > 60; GLUCOSE 90 mg/dL (70-104); GOT 14 U/L (10-34); GPT 11 U/L (10-44); POTASSIUM 4.1 mmol/L (3.5-5.1); SODIUM 129 mmol/L (136-145); TCO2 25 mmol/L (25-35); TOTAL PROTEIN 6.2 g/dL (6.3-8.3)
[2019-05-06 07:24] LABS: HEMATOCRIT 27.3 % (42.0-52.0); MCH 30.8 PG (27-31); MCV 93.5 FL (81-99); MPV 8.4 FL (7.4-10.4); RBC 2.92 XMIL (4.7-6.1); RDW 12.7 % (11.5-14.5); WBC 6.17 X1000 (4.8-10.8)
[2019-05-06] MEDS: NORCO-5 PO PRN ×2 (08:00→16:09)
[2019-05-06] MEDS: ELIQUIS PO SCH ×2 (08:00→21:30)
[2019-05-06] MEDS: FISH OIL CONCENTRATE PO SCH (08:00)
[2019-05-06] MEDS: CULTURELLE PO SCH (08:00)
[2019-05-06] MEDS: THERA M PLUS PO SCH (08:00)
[2019-05-06] MEDS: FERROUS SULFATE PO SCH (08:00)
[2019-05-06] MEDS: MIRALAX PO SCH (08:00)
[2019-05-06] MEDS: NEUTRA-PHOS PO SCH ×3 (08:01→16:09)
[2019-05-06] MEDS: LANOXIN PO SCH (08:01)
[2019-05-06] MEDS: MILK OF MAGNESIA PO SCH ×2 (08:01→08:09)
[2019-05-06] MEDS: PULMICORT INH SCH ×2 (09:59→21:59)
--- NOTE | 2019-05-06 12:56 | PROGRESS NOTE ---
DATE: 05/06/2019 SUBJECTIVE: Patient has no complaints. PHYSICAL EXAMINATION: Vital Signs: Reviewed. Temperature 98 degrees, pulse 72, respiratory rate 18, BP 108/57. General: Patient is pleasant. He is in no distress. HEENT: Normocephalic. Neck: Supple. Cardiovascular: Regular rate. Chest: Clear. Abdomen: Soft. Extremities: Moves all extremities. ASSESSMENT: 1. Hyponatremia, stable at 129. 2. Atrial fibrillation, currently rate controlled on Cardizem. PLAN: We are going to continue patient in the hospital. Continue to follow. Further orders as needed. Hopefully can transition to rehab soon. cc: Addison Cevallos MD
[2019-05-06] MEDS: CALMOSEPTINE OINTMENT TOP PRN (23:26)
[2019-05-07] MEDS: NORCO-5 PO PRN ×2 (01:09→08:29)
[2019-05-07] MEDS: CARDIZEM PO SCH ×3 (01:10→14:08)
[2019-05-07] MEDS: XOPENEX NEB INH SCH ×3 (03:12→15:18)
[2019-05-07] MEDS: ATROVENT NEB INH SCH ×3 (03:12→15:18)
[2019-05-07] MEDS: THERA M PLUS PO SCH (08:30)
[2019-05-07] MEDS: MILK OF MAGNESIA PO SCH (08:30)
[2019-05-07] MEDS: ELIQUIS PO SCH (08:30)
[2019-05-07] MEDS: CULTURELLE PO SCH (08:30)
[2019-05-07] MEDS: FISH OIL CONCENTRATE PO SCH (08:30)
[2019-05-07] MEDS: FERROUS SULFATE PO SCH (08:30)
[2019-05-07] MEDS: NEUTRA-PHOS PO SCH ×2 (08:30→14:08)
[2019-05-07] MEDS: MIRALAX PO SCH (08:31)
[2019-05-07] MEDS: LANOXIN PO SCH (08:32)
[2019-05-07] MEDS: PULMICORT INH SCH (09:00)
--- NOTE | 2019-05-07 12:55 | DISCHARGE SUMMARY ---
ADMISSION DATE: 04/13/2019 DISCHARGE DATE: 05/07/2019 PRIMARY CARE PHYSICIAN: None. ADMISSION DIAGNOSES: 1. Generalized weakness. 2. Mild dehydration. 3. Status post recent treatment for pneumonia. 4. Chronic obstructive pulmonary disease, on home oxygen. 5. Lung cancer. DISCHARGE DIAGNOSES: 1. Hyponatremia. 2. Atrial fibrillation, rate controlled. 3. Generalized weakness with adult failure to thrive. 4. Methicillin-resistant Staphylococcus aureus of right upper arm wound with antibiotic treatment complete. 5. Anemia of chronic disease. SUMMARY OF FINDINGS: This is a 78-year-old male with a history of lung cancer and COPD, on home oxygen, who presented with a several-day history of worsening weakness, fatigue, and difficulty breathing. Had been recently treated for pneumonia but states that he felt like he never really improved. Was mildly dehydrated. He was admitted, given IV hydration. We consulted oncology. We did an echocardiogram on 04/26/2019 that showed an ejection fraction of 70% with a grade 1 left ventricular diastolic dysfunction suggested. He did grow out an MRSA right upper arm wound culture. He was given a PICC line and placed on vancomycin per pharmacy protocol. On 04/26/2019, he was noted to be in atrial fibrillation with RVR at 141, was started on Cardizem, now rate controlled. Chest x-ray from 04/26/2019 showed his left upper lobe atelectasis/infiltrate similar to prior. His white count is normal. It it is now felt that he can safely be discharged to rehab. DISCHARGE MEDICATIONS: Eliquis 5 mg p.o. b.i.d., Lanoxin 125 mcg p.o. daily, ferrous sulfate 325 mg p.o. daily, milk of magnesia 30 mL p.o. daily, multivitamin p.o. daily, omega-3 with 1000 mg Softgel p.o. daily, MiraLAX 17 g p.o. daily, Phospha Neutral tablet 250 mg p.o. daily, benzonatate 100 mg p.o. t.i.d. p.r.n., vitamin D3 one tablet p.o. b.i.d., diltiazem 120 mg p.o. daily, [place] 5 one p.o. p.r.n., Zofran 4 mg p.o. q.6-8 hours p.r.n., and fiber 0.52 g p.o. daily. FOLLOWUP: He will need to follow up with his oncologist once he has completed his rehab stay. He does not currently have a primary care physician. We certainly need to set him up with one but that will be done at discharge also from rehab. This is a 35 minute discharge. Dictated by RED Radford for Addison Cevallos MD cc: RED Radford MD Sammy Becdach, MD
[2019-05-07] MEDS ORDERED: NORCO-5 PO PRN (13:07)
[2019-05-07 14:03] VITALS: BP 104/56
[2019-05-07] MEDS ORDERED: FLU VACCINE IM ONE (16:20)
[2019-05-07] MEDS ORDERED: PNEUMOVAX 23 IM ONE (16:20)
--- NOTE | 2019-05-07 21:55 | DISCHARGE SUMMARY ---
ADMISSION DATE: 04/13/2019 DISCHARGE DATE: 05/07/2019 ADDENDUM: Patient seen and examined by myself. Full note dictated and discussed with nurse practitioner. 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 He was noted to be in atrial fibrillation with rapid ventricular response. This is improved. He currently is on Cardizem 30 q.6h. He has weaned off his vancomycin for his MRSA. We are going to transferring to rehab. Further orders per them. cc: Addison Cevallos MD
== END 2019-05-07 16:50 | DRG 193 ==
LOC: ED 12:34 → 3N 23:10 → OBSVTOIN 23:10 → SUATTDRO 23:10 → INTOOBSV 23:10 → UNDODISIN 04-20 18:11 → P.MEDSURG 04-20 18:18
PROVIDERS: ATTEND Family Medicine